=== PATIENT | male | born 1965 | race African-American/Black ===

== ENCOUNTER 2021-03-18 19:43 | Inpatient (IN) | payer MEDICARE, OTHER ==
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
[2021-03-18] MEDS ORDERED: SODIUM CHLORIDE 0.9% 500 ML 500 ML IV STA (20:23)
[2021-03-18] MEDS ORDERED: ACETAMINOPHEN TAB 500 MG TAB PO STA (20:23)
--- NOTE | 2021-03-18 20:36 | XR ---
EXAMINATION TYPE: XR chest 1V portable DATE OF EXAM: 03/18/2021 COMPARISON: NONE HISTORY: Short of breath TECHNIQUE: Single view FINDINGS: There is patchy pulmonary interstitial and airspace infiltrate. There is coalescent density in the left lung. Trachea is midline. There is no pneumothorax. There is no definite pleural effusio n. IMPRESSION: Extensive pulmonary edema suggestive of RDS.
[2021-03-18 21:01] LABS: Basophils # (A) 0.2 k/uL (0-0.2); Basophils % (A) 2 %; Eosinophils # (A) 0.1 k/uL (0-0.7); Eosinophils % (A) 1 %; HCT 37.1 % (39.0-53.0); HGB 11.8 gm/dL (13.0-17.5); Lymphocytes # (A) 1.5 k/uL (1.0-4.8); Lymphocytes % (A) 13 %; MCH 28.6 pg (25.0-35.0); MCHC 31.8 g/dL (31.0-37.0); MCV 89.8 fL (80.0-100.0); Mean Platelet Volume 8.1; Monocytes % (A) 9 %; Neutrophils # (A) 8.1 k/uL (1.3-7.7); Neutrophils % (A) 73 %; Platelet Count 241 k/uL (150-450); RBC 4.12 m/uL (4.30-5.90); RDW 14.9 % (11.5-15.5)
[2021-03-18 21:15] LABS: ALT 61 U/L (4-49); AST 42 U/L (17-59); African American GFR (CKD) >90 (>60 ml/min/1.73 sqM); Albumin 3.6 g/dL (3.5-5.0); Alkaline Phosphatase 106 U/L (38-126); Anion Gap 9 mmol/L; Blood Urea Nitrogen 13 mg/dL (9-20); Calcium 9.1 mg/dL (8.4-10.2); Carbon Dioxide 26 mmol/L (22-30); Chloride 106 mmol/L (98-107); Glucose 147 mg/dL (74-99); INR 1.1 (<1.2); Magnesium 2.1 mg/dL (1.6-2.3); Non-African American GFR(CKD) >90 (>60 ml/min/1.73 sqM); Partial Thromboplastin Time 26.5 sec (22.0-30.0); Potassium 4.6 mmol/L (3.5-5.1); Prothrombin Time 11.3 sec (9.0-12.0); Sodium 141 mmol/L (137-145); Total Bilirubin 0.3 mg/dL (0.2-1.3); Total Protein 6.8 g/dL (6.3-8.2)
[2021-03-18 21:21] LABS: D-Dimer 0.84 mg/L FEU (<0.60)
[2021-03-18 22:02] LABS: C Reactive Protein 32.8 mg/dL (<1.0)
[2021-03-18] MEDS ORDERED: NALOXONE 0.4 MG/ML 1 ML VIAL IV PRN (22:12)
[2021-03-18] MEDS ORDERED: ENOXAPARIN 150 MG/ML SYRINGE SQ STA (22:50)
[2021-03-18] MEDS ORDERED: DEXAMETHASONE SOD PHOSPHATE 10 MG/ML 1 ML VIAL IV STA (23:00)
--- NOTE | 2021-03-18 23:49 | CT ---
EXAMINATION TYPE: CT angio chest DATE OF EXAM: 03/18/2021 COMPARISON: None HISTORY: R/o PE CT DLP: 980 mGycm Automated exposure control for dose reduction was used. CONTRAST: Performed with IV Contrast, patient injected with 90 mL of Isovue 370. There are 3-D post processed images. Images obtained from the thoracic inlet to the diaphragm with IV contrast. There is extensive bilateral pulmonary interstitial and airspace infiltrates. Heart is top normal in size. There is no pericardial effusion. There is no pleural effusion. There are a few mediastinal and bronchial lymph nodes that measure mostly less than 1 cm. Thoracic aorta is intact. There is no aneurysm or dissection. There is normal contrast opacification of the pulmonary arteries. There are no filling defects. Thoracic spine is intact. There is no compression fracture. Sternum is intact. There is neural stimulator in the lower thoracic spine. IMPRESSION: No evidence of pulmonary embolism. Extensive bilateral pulmonary infiltrates suggestive of RDS.
[2021-03-19] MEDS ORDERED: guaiFENesin SYRUP 100MG/5ML 200 MG/10 ML CUP PO PRN (00:32)
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
[2021-03-19] MEDS ORDERED: SUCCINYLCHOLINE CHLORIDE 100 MG/5 ML SYR IV STA (00:59)
[2021-03-19] MEDS ORDERED: KETAMINE 10 MG/ML 20 ML VIAL IV ONE (00:59)
[2021-03-19 07:30] LABS: HCT 35.2 % (39.0-53.0); HGB 11.2 gm/dL (13.0-17.5); Hypochromasia Slight; MCH 28.5 pg (25.0-35.0); MCHC 31.7 g/dL (31.0-37.0); MCV 89.7 fL (80.0-100.0); Mean Platelet Volume 8.4; Platelet Count 236 k/uL (150-450); RBC 3.93 m/uL (4.30-5.90); RDW 14.8 % (11.5-15.5); WBC 10.3 k/uL (3.8-10.6)
[2021-03-19 07:41] LABS: ALT 57 U/L (4-49); AST 32 U/L (17-59); African American GFR (CKD) >90 (>60 ml/min/1.73 sqM); Albumin 3.3 g/dL (3.5-5.0); Alkaline Phosphatase 97 U/L (38-126); Anion Gap 8 mmol/L; Blood Urea Nitrogen 14 mg/dL (9-20); Calcium 8.7 mg/dL (8.4-10.2); Carbon Dioxide 25 mmol/L (22-30); Chloride 109 mmol/L (98-107); Glucose 173 mg/dL (74-99); LDH 767 U/L (313-618); Magnesium 2.3 mg/dL (1.6-2.3); Non-African American GFR(CKD) >90 (>60 ml/min/1.73 sqM); Potassium 4.5 mmol/L (3.5-5.1); Sodium 142 mmol/L (137-145); Total Bilirubin 0.5 mg/dL (0.2-1.3); Total Protein 6.6 g/dL (6.3-8.2)
[2021-03-19] MEDS: ASPIRIN 81 MG PO SCH (08:27)
[2021-03-19] MEDS: ENOXAPARIN 40 MG/0.4 ML SYRINGE SQ SCH (08:27)
[2021-03-19] MEDS: CHOLECALCIFEROL 25 MCG (1000 IU) TABLET PO SCH (08:27)
[2021-03-19 08:28] LABS: Glucose,Whole Blood 170 mg/dL (75-99)
[2021-03-19] MEDS: BENZONATATE 100 MG CAP PO SCH ×3 (08:28→21:38)
[2021-03-19] MEDS: ASCORBIC ACID 500 MG TAB PO SCH (08:28)
[2021-03-19] MEDS: FAMOTIDINE 20 MG TAB PO SCH ×2 (08:28→17:00)
[2021-03-19] MEDS: DEXAMETHASONE SOD PHOSPHATE 10 MG/ML 1 ML VIAL IV SCH (08:28)
[2021-03-19] MEDS: FUROSEMIDE 10 MG/ML 4 ML VIAL IV SCH ×2 (08:28→21:39)
[2021-03-19] MEDS ORDERED: TOCILIZUMAB 800 MG in SODIUM CHLORIDE 0.9% 60 ML IV ONE (08:30)
[2021-03-19 08:50] LABS: C Reactive Protein 32.7 mg/dL (<1.0)
[2021-03-19] MEDS: INSULIN ASPART (NovoLOG) 100 UNIT/ML VIAL SQ SCH ×4 (08:57→21:39)
[2021-03-19] MEDS ORDERED: METOPROLOL TARTRATE 50 MG TAB PO PRN (09:00)
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
[2021-03-19] MEDS: SYMBICORT 160-4.5 MCG INHALER INHALATION SCH ×2 (11:15→19:28)
--- NOTE | 2021-03-19 12:17 | ECHOF ---
Referral Reason:elevated trops MEASUREMENTS -------- HEIGHT: 182.9 cm WEIGHT: 136.1 kg BP: RVIDd: 4.0 cm (< 3.3) IVSd: 1.4 cm (0.6 - 1.1) LVIDd: 3.8 cm (3.9 - 5.3) LVPWd: 1.4 cm (0.6 - 1.1) IVSs: 1.5 cm LVIDs: 2.6 cm LVPWs: 1.4 cm Ao Diam: 3.5 cm (2.0 - 3.7) AV Cusp: 2.3 cm (1.5 - 2.6) LA Diam: 2.9 cm (2.7 - 3.8) MV EXCURSION: 21.200 mm (> 18.000) MV EF SLOPE: 270 mm/s (70 - 150) EPSS: 0.2 cm RAP: 5.00 mmHg RVSP: 45.16 mmHg FINDINGS -------- Sinus rhythm. Resting tachycardia (HR>100bpm). This was a technically adequate study. Morbid Obesity Pt is Covid positive. The left ventricular size is normal. There is mild concentric left ventricular hypertrophy. Overa ll left ventricular systolic function is normal with, an EF between 55 - 60 %. The right ventricle is severely enlarged. The left atrial size is normal. The right atrial size is normal. The aortic valve is trileaflet, and appears structurally normal. No aortic stenosis or regurgitation. The mitral valve is normal. Mild mitral regurgitation is present. Mild tricuspid regurgitation present. There is mild pulmonary hypertension. The right ventricular systolic pressure, as measured by Doppler, is 45.16mmHg. The pulmonic valve was not well visualized. The aortic root size is normal. There is no pericardial effusion. CONCLUSIONS -------- 1. Morbid Obesity 2. Pt is Covid positive. 3. There is mild concentric left ventricular hypertrophy. 4. Overall left ventricular systolic function is normal with, an EF between 55 - 60 %. 5. The right ventricle is severely enlarged. 6. The left atrial size is normal. 7. The aortic valve is trileaflet, and appears structurally normal. No aortic stenosis or regurgitati on. 8. Mild mitral regurgitation is present. 9. Mild tricuspid regurgitation present. 10. There is mild pulmonary hypertension. 11. There is no pericardial effusion. [employer] HAND ENGRAVER: Kiera Nesbitt RDCS
[2021-03-19 12:52] LABS: Glucose,Whole Blood 176 mg/dL (75-99)
[2021-03-19] MEDS: METOPROLOL TARTRATE 50 MG TAB PO SCH ×2 (13:03→21:39)
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
[2021-03-19 14:58] LABS: Hemoglobin A1C 6.3 % (4.0-6.0)
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
[2021-03-19 16:56] LABS: Glucose,Whole Blood 160 mg/dL (75-99)
[2021-03-19] MEDS: oxyCODONE-APAP 5-325MG 1 EACH TAB PO PRN (16:59)
[2021-03-19] MEDS: AMITRIPTYLINE HCL 25 MG TAB PO SCH (17:00)
[2021-03-19 20:11] LABS: Glucose,Whole Blood 164 mg/dL (75-99)
[2021-03-19] MEDS: ATORVASTATIN 10 MG TAB PO SCH (21:39)
[2021-03-19] MEDS: traZODone HCL 100 MG TAB PO SCH (21:39)
[2021-03-19] MEDS: MELATONIN 5 MG TABLET PO SCH (21:39)
[2021-03-20 02:04] LABS: Ferritin 861.3 ng/mL (22.0-322.0)
[2021-03-20 06:13] LABS: Glucose,Whole Blood 126 mg/dL (75-99)
[2021-03-20] MEDS: INSULIN ASPART (NovoLOG) 100 UNIT/ML VIAL SQ SCH ×4 (06:38→21:40)
[2021-03-20] MEDS: BENZONATATE 100 MG CAP PO SCH ×3 (07:01→21:39)
[2021-03-20] MEDS: SYMBICORT 160-4.5 MCG INHALER INHALATION SCH ×2 (07:44→20:21)
[2021-03-20] MEDS: DEXAMETHASONE SOD PHOSPHATE 10 MG/ML 1 ML VIAL IV SCH (09:28)
[2021-03-20] MEDS: FUROSEMIDE 10 MG/ML 4 ML VIAL IV SCH ×2 (09:28→21:40)
[2021-03-20] MEDS: AMITRIPTYLINE HCL 25 MG TAB PO SCH ×2 (10:27→16:54)
[2021-03-20] MEDS: ASCORBIC ACID 500 MG TAB PO SCH (10:27)
[2021-03-20] MEDS: ASPIRIN 81 MG PO SCH (10:27)
[2021-03-20] MEDS: CHOLECALCIFEROL 25 MCG (1000 IU) TABLET PO SCH (10:27)
[2021-03-20] MEDS: ENOXAPARIN 40 MG/0.4 ML SYRINGE SQ SCH (10:28)
[2021-03-20] MEDS: FAMOTIDINE 20 MG TAB PO SCH ×2 (10:28→16:55)
[2021-03-20] MEDS: SERTRALINE 100 MG TAB PO SCH (10:29)
[2021-03-20] MEDS: METOPROLOL TARTRATE 50 MG TAB PO SCH ×2 (10:29→21:39)
[2021-03-20 11:49] LABS: Glucose,Whole Blood 122 mg/dL (75-99)
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
[2021-03-20 16:52] LABS: Glucose,Whole Blood 130 mg/dL (75-99)
[2021-03-20 20:11] LABS: Glucose,Whole Blood 140 mg/dL (75-99)
[2021-03-20] MEDS: ATORVASTATIN 10 MG TAB PO SCH (21:39)
[2021-03-20] MEDS: traZODone HCL 100 MG TAB PO SCH (21:39)
[2021-03-20] MEDS: MELATONIN 5 MG TABLET PO SCH (21:39)
[2021-03-20] MEDS: oxyCODONE-APAP 5-325MG 1 EACH TAB PO PRN (21:40)
[2021-03-21 06:00] LABS: Glucose,Whole Blood 112 mg/dL (75-99)
[2021-03-21] MEDS: BENZONATATE 100 MG CAP PO SCH ×3 (06:28→20:33)
[2021-03-21] MEDS: INSULIN ASPART (NovoLOG) 100 UNIT/ML VIAL SQ SCH ×4 (06:32→20:35)
[2021-03-21] MEDS: SYMBICORT 160-4.5 MCG INHALER INHALATION SCH ×2 (07:58→20:37)
[2021-03-21] MEDS: DEXAMETHASONE SOD PHOSPHATE 10 MG/ML 1 ML VIAL IV SCH (08:56)
[2021-03-21] MEDS: FUROSEMIDE 10 MG/ML 4 ML VIAL IV SCH ×2 (08:56→20:34)
[2021-03-21] MEDS: ASPIRIN 81 MG PO SCH (09:11)
[2021-03-21] MEDS: AMITRIPTYLINE HCL 25 MG TAB PO SCH ×2 (09:11→17:04)
[2021-03-21] MEDS: SERTRALINE 100 MG TAB PO SCH (09:11)
[2021-03-21] MEDS: CHOLECALCIFEROL 25 MCG (1000 IU) TABLET PO SCH (09:11)
[2021-03-21] MEDS: ENOXAPARIN 40 MG/0.4 ML SYRINGE SQ SCH (09:12)
[2021-03-21] MEDS: METOPROLOL TARTRATE 50 MG TAB PO SCH ×2 (09:12→20:34)
[2021-03-21] MEDS: ASCORBIC ACID 500 MG TAB PO SCH (09:12)
[2021-03-21] MEDS: FAMOTIDINE 20 MG TAB PO SCH ×2 (09:12→17:04)
[2021-03-21 11:56] LABS: Glucose,Whole Blood 116 mg/dL (75-99)
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
--- NOTE | 2021-03-21 12:47 | XR ---
EXAMINATION TYPE: XR chest 1V portable DATE OF EXAM: 03/21/2021 COMPARISON: Chest x-ray 03/18/2021 HISTORY: Shortness of breath, Covid TECHNIQUE: Single frontal view of the chest is obtained. FINDINGS: There may be some slight interval improved aeration in the right upper lobe, left upper lo be. Prior exam. Exam is expiratory and rotated however. Postop changes are noted cervical spine. Thor acic cord stimulator in leads are again seen. Cardiomediastinal silhouette is stable. No evident pneu mothorax or pleural effusion. Possible spinal curvature. There is thoracic spondylosis. IMPRESSION: Suspect some improvement in aeration although there are differences in technique. Expira tory rotated exam.
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
[2021-03-21 17:08] LABS: Glucose,Whole Blood 120 mg/dL (75-99)
[2021-03-21 20:23] LABS: Glucose,Whole Blood 121 mg/dL (75-99)
[2021-03-21] MEDS: oxyCODONE-APAP 5-325MG 1 EACH TAB PO PRN (20:34)
[2021-03-21] MEDS: traZODone HCL 100 MG TAB PO SCH (20:34)
[2021-03-21] MEDS: ATORVASTATIN 10 MG TAB PO SCH (20:34)
[2021-03-21] MEDS: MELATONIN 5 MG TABLET PO SCH (20:35)
[2021-03-22 05:14] VITALS: RESP 18
[2021-03-22 06:20] LABS: Glucose,Whole Blood 83 mg/dL (75-99)
[2021-03-22] MEDS: INSULIN ASPART (NovoLOG) 100 UNIT/ML VIAL SQ SCH ×2 (06:22→12:16)
[2021-03-22] MEDS: BENZONATATE 100 MG CAP PO SCH (06:36)
[2021-03-22] MEDS: SYMBICORT 160-4.5 MCG INHALER INHALATION SCH (09:02)
[2021-03-22] MEDS: oxyCODONE-APAP 5-325MG 1 EACH TAB PO PRN (09:09)
[2021-03-22] MEDS: FUROSEMIDE 10 MG/ML 4 ML VIAL IV SCH (09:10)
[2021-03-22] MEDS: ASPIRIN 81 MG PO SCH (09:10)
[2021-03-22] MEDS: AMITRIPTYLINE HCL 25 MG TAB PO SCH (09:12)
[2021-03-22] MEDS: ENOXAPARIN 40 MG/0.4 ML SYRINGE SQ SCH (09:12)
[2021-03-22] MEDS: CHOLECALCIFEROL 25 MCG (1000 IU) TABLET PO SCH (09:13)
[2021-03-22] MEDS: SERTRALINE 100 MG TAB PO SCH (09:13)
[2021-03-22] MEDS: DEXAMETHASONE SOD PHOSPHATE 10 MG/ML 1 ML VIAL IV SCH (09:13)
[2021-03-22] MEDS: METOPROLOL TARTRATE 50 MG TAB PO SCH (09:13)
[2021-03-22] MEDS: ASCORBIC ACID 500 MG TAB PO SCH (09:14)
[2021-03-22] MEDS: FAMOTIDINE 20 MG TAB PO SCH (09:14)
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
[2021-03-22 12:15] LABS: Glucose,Whole Blood 107 mg/dL (75-99)
[2021-03-22 12:16] VITALS: BP 109/60; PULSE 95; TEMP 98.3
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
== END 2021-03-22 13:03 | DRG 177 ==
LOC: EC 19:43 → EEVIPCON 19:43 → 3SCARD 22:12
PROVIDERS: ADMIT Internal Medicine Geriatric Medicine; ATTEND Internal Medicine Geriatric Medicine
PROC: XW043H5 Introduction of Tocilizumab into Central Vein, Percutaneous Approach, New Technology Group 5 (ICD-10-PCS; principal; 2021-03-18)
PROC: 5A0945A Assistance with Respiratory Ventilation, 24-96 Consecutive Hours, High Flow/Velocity Cannula (ICD-10-PCS; 2021-03-19)
DX: U07.1 COVID-19 (principal); J12.82 Pneumonia due to coronavirus disease 2019; J80 Acute respiratory distress syndrome; I50.31 Acute diastolic (congestive) heart failure; E87.2 Acidosis; F33.9 Major depressive disorder, recurrent, unspecified; G81.91 Hemiplegia, unspecified affecting right dominant side; E11.9 Type 2 diabetes mellitus without complications; E66.9 Obesity, unspecified; E78.5 Hyperlipidemia, unspecified; F41.9 Anxiety disorder, unspecified; F79 Unspecified intellectual disabilities; I11.0 Hypertensive heart disease with heart failure; I27.20 Pulmonary hypertension, unspecified; I45.10 Unspecified right bundle-branch block; K21.9 Gastro-esophageal reflux disease without esophagitis; W34.00XS Accidental discharge from unspecified firearms or gun, sequela; Z87.820 Personal history of traumatic brain injury; Z79.51 Long term (current) use of inhaled steroids; Z79.82 Long term (current) use of aspirin; Z79.84 Long term (current) use of oral hypoglycemic drugs; Z79.899 Other long term (current) drug therapy; Z82.49 Family history of ischemic heart disease and other diseases of the circulatory system; Z87.891 Personal history of nicotine dependence; R79.89 Other specified abnormal findings of blood chemistry; G89.29 Other chronic pain; M54.2 Cervicalgia; M54.5 Low back pain; I08.1 Rheumatic disorders of both mitral and tricuspid valves; Z87.01 Personal history of pneumonia (recurrent); E07.9 Disorder of thyroid, unspecified; K76.9 Liver disease, unspecified; R00.0 Tachycardia, unspecified; Z88.0 Allergy status to penicillin
CPT/HCPCS: 36415; 71045; 71275; 80053; 82728; 83036; 83605; 83615; 83735; 83880; 84484; 85025; 85027; 85379; 85610; 85730; 86140; 87636; 93005; 93306; 94640; 94660; 94760; 96360; 99291

== ENCOUNTER 2021-11-12 08:54 | Inpatient (IN) | payer MEDICARE, OTHER ==
[2021-11-12 09:07] LABS: Glucose,Whole Blood 100 mg/dL (75-99)
[2021-11-12 09:24] LABS: Basophils % (A) 0 %; Eosinophils # (A) 0.3 k/uL (0-0.7); Eosinophils % (A) 4 %; HCT 36.2 % (39.0-53.0); HGB 11.5 gm/dL (13.0-17.5); Hypochromasia Slight; Lymphocytes % (A) 29 %; MCH 28.7 pg (25.0-35.0); MCHC 31.8 g/dL (31.0-37.0); MCV 90.1 fL (80.0-100.0); Mean Platelet Volume 8.7; Monocytes # (A) 0.7 k/uL (0-1.0); Monocytes % (A) 10 %; Neutrophils # (A) 3.7 k/uL (1.3-7.7); Neutrophils % (A) 54 %; Platelet Count 204 k/uL (150-450); RBC 4.02 m/uL (4.30-5.90); RDW 14.7 % (11.5-15.5); WBC 6.8 k/uL (3.8-10.6)
--- NOTE | 2021-11-12 09:37 | CT ---
EXAMINATION TYPE: CT brain wo con for TPA DATE OF EXAM: 11/12/2021 COMPARISON: None HISTORY: Lt sided arm weakness CT DLP: 1099.4 mGycm Automated exposure control for dose reduction was used. Helical imaging through the brain. FINDINGS: Bilateral frontal lobe encephalomalacia is present, there is extra-axial phenomenon of the frontal ho rns of the lateral ventricles, overlying craniotomy defects are present, multiple metallic densities are scattered along the calvarial segment, within the overlying soft tissues, along the dural surface s as well as along a density over the frontal lobe which may be due to some bone fragment or possibly dystrophic calcification. There is no evident hemorrhage or hydrocephalus. Within the subcutaneous s calp soft tissues anteriorly there is a small focus of air present which may be due to local trauma, axial image #36. Cerebral vascular calcifications are present. IMPRESSION: POSTTRAUMATIC CHANGES ARE THOUGHT LIKELY TO BE CHRONIC, COMPARISON WITH PRIOR HEAD CT MAY BE OF BENEF IT, ADDENDED REPORT CAN BE ISSUED
[2021-11-12 09:40] LABS: ALT 31 U/L (4-49); AST 23 U/L (17-59); African American GFR (CKD) >90 (>60 ml/min/1.73 sqM); Alkaline Phosphatase 85 U/L (38-126); Anion Gap 10 mmol/L; Blood Urea Nitrogen 11 mg/dL (9-20); Calcium 9.5 mg/dL (8.4-10.2); Carbon Dioxide 27 mmol/L (22-30); Chloride 102 mmol/L (98-107); Glucose 90 mg/dL (74-99); Non-African American GFR(CKD) >90 (>60 ml/min/1.73 sqM); Potassium 4.4 mmol/L (3.5-5.1); Sodium 139 mmol/L (137-145); Total Bilirubin 0.3 mg/dL (0.2-1.3); Total Protein 7.5 g/dL (6.3-8.2)
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
--- NOTE | 2021-11-12 10:13 | XR ---
EXAMINATION TYPE: XR chest 2V DATE OF EXAM: 11/12/2021 COMPARISON: 03/21/2021 HISTORY: 55-year-old male confusion, altered mental status TECHNIQUE: AP and lateral views FINDINGS: Very low lung volumes with crowded vascular markings. Strandy atelectasis in the lower lungs. Spinal stimulator array centered along the mid to lower thoracic spinal canal. No ramy consolidation or ple ural effusion. Partially visualized ACDF hardware. IMPRESSION: Prominent hypoventilatory changes with crowded vascular markings and strandy basilar atelectasis.
--- NOTE | 2021-11-12 10:27 | CT ---
EXAMINATION TYPE: CT angio head neck DATE OF EXAM: 11/12/2021 HISTORY: lt arm weakness, history of closed head injury COMPARISON: 11/12/2021 CT DLP: 880.8 mGycm. Automated Exposure Control for Dose Reduction was Utilized. TECHNIQUE: CTA scan of the neck is performed with IV Contrast, patient injected with 65 mL of Isovue 370, axial images are obtained, coronal and sagittal reformatted images are reviewed. 3D reconstruct ed images are created on an independent workstation and reviewed. FINDINGS: Extensive encephalomalacia intracranially with postsurgical change is seen. There is a lens edge grinder machine kourtney appearing calcification left cerebral hemisphere. Aortic arch appears to be patent. Origins of the great vessels have standard anatomy and appear to be patent. Carotid bifurcations are patent bilaterally. No significant stenosis. No sizable aneurysm or vascular malformation. Visualized vertebral basilar system is patent. Posterio r cerebral arteries enhance normally. Visualized carotid arteries appear to enhance normally. The proximal M1 segments of bilateral MCAs enhance. There is asymmetric reduced enhancement of the bi furcation vessels of the left MCA. Anterior cerebral arteries are diminutive in size. Patent. Cannot exclude a small 1 to 2 mm anterior communicating artery aneurysm. IMPRESSION: 1. There is reduced enhancement of the bifurcation vessels of the left MCA relative to the right side . Acute thrombotic event cannot be excluded consider correlation clinically and if warranted with dif fusion weighted MRI, MRA. NASCET criteria was used in interpretation of this exam?
[2021-11-12] MEDS ORDERED: ASPIRIN 81 MG PO STA (11:03)
[2021-11-12 11:11] LABS: INR 0.9 (<1.2); Partial Thromboplastin Time 24.1 sec (22.0-30.0); Prothrombin Time 9.9 sec (9.0-12.0)
[2021-11-12] MEDS ORDERED: ASPIRIN 325 MG TAB PO STA (11:12)
[2021-11-12 11:24] LABS: Appearance,Urine Clear (Clear); Bilirubin,Urine Negative (Negative); Blood,Urine Negative (Negative); Color,Urine Yellow; Glucose,Urine (UA) Negative (Negative); Ketones,Urine Negative (Negative); Leukocyte Esterase,Urine Negative (Negative); Nitrite,Urine Negative (Negative); Protein,Urine Trace (Negative); Urobilinogen,Urine <2.0 mg/dL (<2.0)
[2021-11-12] MEDS ORDERED: SODIUM CHLORIDE 0.9% 500 ML 500 ML IV STA (11:39)
[2021-11-12 12:04] LABS: Amphetamine Screen,Urine Not Detected (NotDetected); Barbiturate Screen,Urine Not Detected (NotDetected); Benzodiazepines Screen,Urine Not Detected (NotDetected); Cocaine Screen,Urine Not Detected (NotDetected); Methadone Screen, Urine Not Detected (NotDetected); Opiate Screen,Urine Detected (NotDetected); Oxycodone Screen, Urine Detected (NotDetected); Phencyclidine Screen,Urine Not Detected (NotDetected); Tricyclic Antidepressant,Urine Detected (NotDetected); Urn Cannabinoid Scrn Not Detected (NotDetected)
[2021-11-12 12:08] LABS: Specific Gravity,Urine >1.050 (1.001-1.035)
[2021-11-12] MEDS ORDERED: ACETAMINOPHEN TAB 325 MG TAB PO PRN (12:31)
[2021-11-12] MEDS ORDERED: guaiFENesin SYRUP 100MG/5ML 200 MG/10 ML CUP PO PRN (12:31)
[2021-11-12] MEDS: oxyCODONE-APAP 5-325MG 1 EACH TAB PO SCH ×3 (13:44→20:13)
[2021-11-12 16:00] LABS: Glucose,Whole Blood 109 mg/dL (75-99)
[2021-11-12] MEDS ORDERED: TICAGRELOR 90 MG TAB PO STA (16:14)
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
[2021-11-12] MEDS ORDERED: metFORMIN 500 MG TAB PO SCH (17:00)
[2021-11-12] MEDS ORDERED: AMITRIPTYLINE HCL 25 MG TAB PO SCH (17:00)
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
--- NOTE | 2021-11-12 18:00 | ECHOF ---
Referral Reason:Thrombus MEASUREMENTS -------- HEIGHT: 185.4 cm WEIGHT: 135.6 kg BP: 131/96 RVIDd: 3.1 cm (< 3.3) IVSd: 1.4 cm (0.6 - 1.1) LVIDd: 3.8 cm (3.9 - 5.3) LVPWd: 1.6 cm (0.6 - 1.1) IVSs: 2.0 cm LVIDs: 2.8 cm LVPWs: 1.7 cm LAESV Index (A-L): 21.02 ml/m Ao Diam: 4.0 cm (2.0 - 3.7) AV Cusp: 2.4 cm (1.5 - 2.6) LA Diam: 4.2 cm (2.7 - 3.8) MV EXCURSION: 19.027 mm (> 18.000) MV EF SLOPE: 62 mm/s (70 - 150) EPSS: 0.3 cm MV E Adam: 0.79 m/s MV DecT: 364 ms MV A Adam: 1.08 m/s MV E/A Ratio: 0.73 RAP: 5.00 mmHg RVSP: 21.95 mmHg FINDINGS -------- Sinus rhythm. This was a technically difficult study with suboptimal apical views. All issa not well visulized The left ventricular size is normal. There is moderate concentric left ventricular hypertrophy. O verall left ventricular systolic function is normal with, an EF between 55 - 60 %. The right ventricle is normal in size. Normal LA size by volume 22+/-6 ml/m2. The right atrium was not well visualized. 4.0mg of Lumason was utilized for enhancement of images Interatrial and interventricular septum intact. There is no evidence of aortic regurgitation. There is no evidence of aortic stenosis. There is trace to mild mitral regurgitation. Mild tricuspid regurgitation present. There is no evidence of pulmonary hypertension. The right v entricular systolic pressure, as measured by Doppler, is 21.95mmHg. There is no pulmonic regurgitation present. The aortic root size is normal. IVC Not well visulized. There is no pericardial effusion. CONCLUSIONS -------- 1. The left ventricular size is normal. 2. There is moderate concentric left ventricular hypertrophy. 3. Overall left ventricular systolic function is normal with, an EF between 55 - 60 %. 4. There is trace to mild mitral regurgitation. 5. Mild tricuspid regurgitation present. SILO PAINTER: Camille Pritchett RDCS
[2021-11-12] MEDS: SYMBICORT 160-4.5 MCG INHALER INHALATION SCH (19:43)
[2021-11-12 19:59] LABS: Glucose,Whole Blood 131 mg/dL (75-99)
[2021-11-12] MEDS: HEPARIN SODIUM,PORCINE/PF 5,000 UNIT/0.5 ML SYRINGE SQ SCH (20:12)
[2021-11-12] MEDS: FAMOTIDINE 20 MG TAB PO SCH (20:13)
[2021-11-12] MEDS: MELATONIN 5 MG TABLET PO SCH (20:13)
[2021-11-12] MEDS: METOPROLOL TARTRATE 50 MG TAB PO SCH (20:13)
[2021-11-12] MEDS: AMITRIPTYLINE HCL 50 MG TAB PO SCH (20:13)
[2021-11-12] MEDS: ATORVASTATIN 20 MG TAB PO SCH (20:13)
[2021-11-12] MEDS: SENNOSIDES-DOCUSATE SODIUM 1 EACH TAB PO SCH (20:15)
[2021-11-12] MEDS ORDERED: TICAGRELOR 90 MG TAB PO SCH (21:00)
[2021-11-12] MEDS ORDERED: ATORVASTATIN 10 MG TAB PO SCH (21:00)
[2021-11-13] MEDS: oxyCODONE-APAP 5-325MG 1 EACH TAB PO SCH ×6 (00:21→21:28)
[2021-11-13 06:19] LABS: Glucose,Whole Blood 92 mg/dL (75-99)
[2021-11-13 08:31] LABS: ALT 29 U/L (4-49); AST 22 U/L (17-59); African American GFR (CKD) >90 (>60 ml/min/1.73 sqM); Alkaline Phosphatase 92 U/L (38-126); Anion Gap 10 mmol/L; Blood Urea Nitrogen 11 mg/dL (9-20); Calcium 9.5 mg/dL (8.4-10.2); Carbon Dioxide 26 mmol/L (22-30); Chloride 104 mmol/L (98-107); Glucose 97 mg/dL (74-99); Non-African American GFR(CKD) >90 (>60 ml/min/1.73 sqM); Potassium 4.1 mmol/L (3.5-5.1); Sodium 140 mmol/L (137-145); Total Bilirubin 0.4 mg/dL (0.2-1.3); Total Protein 7.5 g/dL (6.3-8.2)
[2021-11-13] MEDS: ASPIRIN 81 MG PO SCH (09:36)
[2021-11-13] MEDS: ASCORBIC ACID 500 MG TAB PO SCH (09:36)
[2021-11-13] MEDS: CHOLECALCIFEROL 125 MCG (5000 IU) TABLET PO SCH (09:36)
[2021-11-13] MEDS: CYANOCOBALAMIN 500 MCG TAB PO SCH (09:36)
[2021-11-13] MEDS: CLOPIDOGREL 75 MG TAB PO SCH (09:36)
[2021-11-13] MEDS: SERTRALINE 100 MG TAB PO SCH (09:39)
[2021-11-13] MEDS: METOPROLOL TARTRATE 50 MG TAB PO SCH ×2 (09:39→21:28)
[2021-11-13] MEDS: SENNOSIDES-DOCUSATE SODIUM 1 EACH TAB PO SCH ×2 (09:40→21:29)
[2021-11-13] MEDS: HEPARIN SODIUM,PORCINE/PF 5,000 UNIT/0.5 ML SYRINGE SQ SCH ×2 (09:42→21:29)
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
[2021-11-13 11:37] LABS: Glucose,Whole Blood 108 mg/dL (75-99)
[2021-11-13] MEDS: SYMBICORT 160-4.5 MCG INHALER INHALATION SCH ×2 (13:08→21:39)
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
[2021-11-13 15:14] LABS: Chol/HDL Ratio 3.05 Ratio; LDL Cholesterol,Calculated 72.3 mg/dL (0.0-131.0)
[2021-11-13 16:45] LABS: Glucose,Whole Blood 94 mg/dL (75-99)
[2021-11-13] MEDS: metFORMIN 500 MG TAB PO SCH (17:37)
--- NOTE | 2021-11-13 18:22 | EEG ---
ELECTROENCEPHALOGRAM REPORT DATE OF SERVICE: 11/13/2021 CLINICAL HISTORY: This is a 55-year-old gentleman with history of traumatic brain injury with bilateral frontal and left parietal encephalomalacia who presented because of acute left-sided weakness. The video EEG is obtained to evaluate for seizure epileptiform activity. RELEVANT MEDICATIONS: The patient is not on any antiepileptic drugs. EEG TYPE: A routine 21 channel EEG is performed with video using the 10/20 electrode placement system. DESCRIPTION: Awake state is obtained. During awake state the background consist of low to moderate voltage of 7-8 hertz activity. There is no physiological stage II sleep architecture. There is significant diffuse myogenic artifact. The slowing is hard to assess because of artifact. There is moderate significant diffuse myogenic artifact throughout the study. Regarding the interictal and ictal: None appreciated. ACTIVATION PROCEDURES: Photic stimulation and hyperventilation is not performed. CLINICAL INTERPRETATION: This is an abnormal routine EEG. The background slowing is suggestive of mild encephalopathy. I could not comment on patient slowing because of artifact. There is no epileptiform discharges or seizure on the EEG. Clinical correlation is recommended. YAZ / MARILYNN: [id number] / MTDD
[2021-11-13 21:06] LABS: Glucose,Whole Blood 130 mg/dL (75-99)
[2021-11-13] MEDS: AMITRIPTYLINE HCL 50 MG TAB PO SCH (21:28)
[2021-11-13] MEDS: ATORVASTATIN 20 MG TAB PO SCH (21:28)
[2021-11-13] MEDS: FAMOTIDINE 20 MG TAB PO SCH (21:28)
[2021-11-13] MEDS: MELATONIN 5 MG TABLET PO SCH (21:29)
[2021-11-14] MEDS: oxyCODONE-APAP 5-325MG 1 EACH TAB PO SCH ×5 (00:16→17:12)
[2021-11-14 06:16] LABS: Glucose,Whole Blood 107 mg/dL (75-99)
[2021-11-14] MEDS: ASPIRIN 81 MG PO SCH (08:50)
[2021-11-14] MEDS: METOPROLOL TARTRATE 50 MG TAB PO SCH (08:50)
[2021-11-14] MEDS: metFORMIN 500 MG TAB PO SCH ×2 (08:50→17:12)
[2021-11-14] MEDS: CHOLECALCIFEROL 125 MCG (5000 IU) TABLET PO SCH (08:50)
[2021-11-14] MEDS: HEPARIN SODIUM,PORCINE/PF 5,000 UNIT/0.5 ML SYRINGE SQ SCH (08:51)
[2021-11-14] MEDS: CYANOCOBALAMIN 500 MCG TAB PO SCH (08:51)
[2021-11-14] MEDS: CLOPIDOGREL 75 MG TAB PO SCH (08:51)
[2021-11-14] MEDS: ASCORBIC ACID 500 MG TAB PO SCH (08:51)
[2021-11-14] MEDS: SENNOSIDES-DOCUSATE SODIUM 1 EACH TAB PO SCH (08:52)
[2021-11-14] MEDS: SERTRALINE 100 MG TAB PO SCH (08:52)
[2021-11-14] MEDS: SYMBICORT 160-4.5 MCG INHALER INHALATION SCH (09:09)
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
[2021-11-14 11:07] VITALS: RESP 18
[2021-11-14 11:54] LABS: Glucose,Whole Blood 100 mg/dL (75-99)
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
[2021-11-14 16:07] VITALS: BP 134/70; PULSE 82; TEMP 98
[2021-11-14 16:48] LABS: Glucose,Whole Blood 175 mg/dL (75-99)
== END 2021-11-14 18:34 | DRG 65 ==
LOC: EC 08:54 → 3SCARD 11:12
PROVIDERS: ADMIT Family Medicine; ATTEND Family Medicine
DX: I63.312 Cerebral infarction due to thrombosis of left middle cerebral artery (principal); G81.94 Hemiplegia, unspecified affecting left nondominant side; F33.9 Major depressive disorder, recurrent, unspecified; Q21.0 Ventricular septal defect; G81.91 Hemiplegia, unspecified affecting right dominant side; I63.9 Cerebral infarction, unspecified; D64.9 Anemia, unspecified; Z20.822 Contact with and (suspected) exposure to COVID-19; E11.9 Type 2 diabetes mellitus without complications; E78.5 Hyperlipidemia, unspecified; F41.9 Anxiety disorder, unspecified; G89.29 Other chronic pain; G93.89 Other specified disorders of brain; I50.9 Heart failure, unspecified; I11.0 Hypertensive heart disease with heart failure; R47.01 Aphasia; Z86.16 Personal history of COVID-19; R29.711 NIHSS score 11; R56.9 Unspecified convulsions; Z79.51 Long term (current) use of inhaled steroids; Z79.82 Long term (current) use of aspirin; Z79.84 Long term (current) use of oral hypoglycemic drugs; Z79.899 Other long term (current) drug therapy; Z82.49 Family history of ischemic heart disease and other diseases of the circulatory system; Z87.820 Personal history of traumatic brain injury; Z87.891 Personal history of nicotine dependence; S06.890S Other specified intracranial injury without loss of consciousness, sequela; X95.9XXS Assault by unspecified firearm discharge, sequela
CPT/HCPCS: 36415; 70450; 70496; 70498; 71046; 80053; 80061; 80306; 81003; 83036; 83605; 84443; 84484; 85025; 85610; 85730; 87040; 87635; 93005; 93306; 94640; 95816; 99291

== ENCOUNTER → 2022-04-15 | Outpatient (CLI) | payer MEDICARE ==
--- NOTE | 2022-04-15 15:17 | USB ---
Reason for Exam: Clinical finding. Indicated Problems: Palpable abnormality of both sides. Film Views: Bilateral CC views were taken. Bilateral MLO views were taken. Tissue Density: There are scattered fibroglandular densities. Findings: Analyzed By CAD. Mammogram There is breast tissue under the bilateral nipples. Findings are compatible with gynecomastia. A palpable abnormality is within the lower inner aspect left breast. No underlying mammographic abnormalities located at this level.. Technique: Method: Targeted. Findings: The retroareolar of both breasts was scanned. palp Rt 10 - no findings, palp Lt 12 - no findings, appearance of bilateral gynocomatiaGynecomastia is the retroareolar region. A suspicious mass is not identified. Short-term follow-up can be performed. Overall Assessment: Probably benign, BI-RAD 3 Assessment: MG 3D diag mammo w/cad WILLIAM - Bilateral: Probably benign, BI-RAD 3. US breast limited BILAT - Bilateral: Probably benign, BI-RAD 3. Management: Diagnostic Mammogram of both breasts in 6 months. Diagnostic Breast Ultrasound of the left breast in 6 months. A clinical breast exam by your physician is recommended on an annual basis and results should be correlated with mammographic findings. Results were given to the patient verbally at the time of exam. Clinical management is recommended. Negative ultrasound and negative mammogram should not preclude biopsy of suspicious palpable abnormalities. Electronically signed and approved by: Blade Alcantara D.O. Radiologis
== END | disposition home or self-care (01) ==
LOC: RADMAMWWP 09:01
PROVIDERS: ATTEND Family Medicine
DX: N64.4 Mastodynia (principal)
CPT/HCPCS: 77066; 76642; G0279; 77062

== ENCOUNTER 2022-11-04 19:24 | Emergency (ER) | payer MEDICARE ==
[2022-11-04 19:41] VITALS: RESP 18; TEMP 98.2
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
[2022-11-04 20:08] LABS: Appearance,Urine Turbid (Clear); Bilirubin,Urine Negative (Negative); Blood,Urine Large (Negative); Color,Urine Dark Brown; Glucose,Urine (UA) Negative (Negative); Ketones,Urine Negative (Negative); Leukocyte Esterase,Urine Large (Negative); Mucus,Urine Many /hpf; Nitrite,Urine Negative (Negative); Protein,Urine 2+ (Negative); RBC,Urine >182 /hpf (0-5); Urobilinogen,Urine <2.0 mg/dL (<2.0); WBC,Urine 91 /hpf (0-5)
[2022-11-04 20:22] LABS: Specific Gravity,Urine 1.028 (1.001-1.035)
[2022-11-04 21:03] LABS: Albumin 3.9 g/dL (3.5-5.0); Calcium 8.8 mg/dL (8.4-10.2); Potassium 4.7 mmol/L (3.5-5.1); Total Bilirubin 0.2 mg/dL (0.2-1.3); Total Protein 7.1 g/dL (6.3-8.2)
[2022-11-04 21:23] LABS: HCT 35.7 % (39.0-53.0); HGB 11.3 gm/dL (13.0-17.5); Hypochromasia Slight; MCH 27.5 pg (25.0-35.0); MCHC 31.6 g/dL (31.0-37.0); Mean Platelet Volume 8.5; Platelet Count 240 k/uL (150-450); RDW 14.1 % (11.5-15.5); WBC 5.2 k/uL (3.8-10.6)
[2022-11-04 21:41] LABS: Eosinophils # (M) 0.21 k/uL (0-0.7); Lymphocytes # (M) 1.61 k/uL (1.0-4.8); Monocytes # (M) 0.99 k/uL (0-1.0); Neutrophils # (M) 2.39 k/uL (1.3-7.7); Neutrophils % (M) 46 %; Nucleated Red Blood Cells 0 /100 WBC (0-0); Total Cells Counted 100
[2022-11-04 23:26] VITALS: BP 135/80; PULSE 91
== END 2022-11-04 23:26 | disposition home or self-care (01) ==
LOC: EC 19:24
DX: R31.9 Hematuria, unspecified (principal); I11.0 Hypertensive heart disease with heart failure; I50.9 Heart failure, unspecified; E78.5 Hyperlipidemia, unspecified; K21.9 Gastro-esophageal reflux disease without esophagitis; E11.9 Type 2 diabetes mellitus without complications; E07.9 Disorder of thyroid, unspecified; F41.9 Anxiety disorder, unspecified; F32.A Depression, unspecified; Z79.82 Long term (current) use of aspirin; Z79.899 Other long term (current) drug therapy; Z79.4 Long term (current) use of insulin; Z87.891 Personal history of nicotine dependence; Z88.0 Allergy status to penicillin
CPT/HCPCS: 36415; 80053; 81001; 83605; 85025; 99284; 99285

== ENCOUNTER → 2023-02-15 | Outpatient (CLI) | payer MEDICARE ==
[2023-02-15 18:18] LABS: Basophils # (A) 0.05 X 10*3/uL (0.00-0.10); Basophils % (A) 0.6 %; Eosinophils # (A) 0.69 X 10*3/uL (0.04-0.35); HCT 37.2 % (39.6-50.0); HGB 11.2 g/dL (13.0-17.0); Immature Grans, Automated 0.5 %; Lymphocytes # (A) 2.12 X 10*3/uL (0.90-5.00); Lymphocytes % (A) 24.6 %; MCHC 30.1 g/dL (32.0-37.0); MCV 86.3 fL (80.0-97.0); Mean Platelet Volume 10.2 fL (9.5-12.2); Monocytes % (A) 8.1 %; NRBC Per 100 WBC 0 /100 WBCS (0.0-0.0); Neutrophils # (A) 5.01 X 10*3/uL (1.80-7.70); Neutrophils % (A) 58.2 %; Platelet Count 274 X 10*3/uL (140-440); RBC 4.31 X 10*6/uL (4.40-5.60); RDW 15.9 % (11.5-14.5); WBC 8.61 X 10*3/uL (4.50-10.00)
[2023-02-15 19:56] LABS: ALT 35 U/L (10-49); AST 42 U/L (14-35); African American GFR (CKD) 109.5 (60.0-200.0); Albumin 4.3 g/dL (3.8-4.9); Alkaline Phosphatase 101 U/L (41-126); BUN/Creat Ratio 19.11 Ratio (12.00-20.00); Blood Urea Nitrogen 17.2 mg/dL (9.0-27.0); Calcium 9.5 mg/dL (8.7-10.3); Carbon Dioxide 19.2 mmol/L (20.0-27.5); Chloride 106 mmol/L (96-109); Globulin 3.3 g/dL (1.6-3.3); Non-African American GFR(CKD) 94.5 (60.0-200.0); Sodium 140 mmol/L (135-145); Total Bilirubin <0.15 mg/dL (0.30-1.20); Total Protein 7.6 g/dL (6.2-8.2)
== END | disposition home or self-care (01) ==
LOC: LABPAT 08:33
PROVIDERS: ATTEND Urology
DX: Z01.812 Encounter for preprocedural laboratory examination (principal); N20.0 Calculus of kidney; R31.29 Other microscopic hematuria
CPT/HCPCS: 80053; 85025

== ENCOUNTER 2023-02-24 06:49 | Day surgery (SDC) | payer MEDICARE, OTHER ==
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
[~2023-02-24 06:49] MED LIST: GENTAMICIN 170 MG in SODIUM CHLORIDE 0.9% 100 ML IVPB PRN; Pre Op ABX Message 1 EACH MISC MISCELLANE ONE
[2023-02-24] MEDS ORDERED: DEXAMETHASONE SOD PHOSPHATE 4 MG/ML 1 ML VIAL IV ONE (07:25)
[2023-02-24] MEDS ORDERED: HYDROmorphone 0.5 MG/0.5 ML SYRINGE IVP PRN (07:25)
[2023-02-24] MEDS ORDERED: ONDANSETRON 4 MG/2 ML VIAL IVP ONE (07:25)
[2023-02-24] MEDS ORDERED: LIDOCAINE 1% (10MG/ML) FOR IV START INTRADERMA PRN (07:25)
--- NOTE | 2023-02-24 07:25 | XR ---
EXAMINATION TYPE: XR KUB DATE OF EXAM: 02/24/2023 7:16 AM CLINICAL HISTORY: Right-sided kidney stone. TECHNIQUE: 3 supine KUB images of the abdomen are obtained. COMPARISON: CT abdomen and pelvis December 26, 2022. FINDINGS: Evaluation is suboptimal due to large body habitus. Right double-J ureter stent is redemons trated. No definitive nephrolithiasis. Overall nonobstructive bowel gas pattern. Surgical change to the lower lumbar spine is present. There is lower thoracic spinal stimulator device. Lung bases are clear. IMPRESSION: As above.
[2023-02-24 08:19] LABS: Glucose,Whole Blood 105 mg/dL (70-110)
[2023-02-24] MEDS: LACTATED RINGERS 1,000 ML IV SCH (08:24)
[2023-02-24] MEDS ORDERED: GLYCOPYRROLATE 0.2 MG/ML 2 ML VIAL ONE (09:20)
[2023-02-24] MEDS ORDERED: fentaNYL (PF) 50 MCG/ML 2 ML AMP ONE (09:20)
[2023-02-24] MEDS ORDERED: NEOSTIGMINE 1 MG/ML 10 ML VIAL ONE (09:20)
[2023-02-24] MEDS ORDERED: ROCURONIUM 10 MG/ML (5 ML VIAL) IV ONE (09:20)
[2023-02-24] MEDS ORDERED: PROPOFOL 10 MG/ML 20 ML VIAL IV ONE (09:20)
[2023-02-24] MEDS ORDERED: LIDOCAINE 2% INJ 20 MG/ML (2 ML VIAL) ONE (09:20)
[2023-02-24] MEDS ORDERED: PHENYLEPHRINE-0.9% NACL SYG 1,000 MCG/10 ML SYRINGE ONE (09:20)
[2023-02-24] MEDS ORDERED: IOPAMIDOL-370 50ML BTL IRRIGATION ONE (10:06)
[2023-02-24] MEDS: VANCOMYCIN 2,000 MG in SODIUM CHLORIDE 0.9% 500 ML 500 ML IVPB STA ×2 (10:11→13:01)
[2023-02-24] MEDS ORDERED: ACETAMINOPHEN TAB 325 MG TAB PO PRN ×2 (10:52→10:54)
[2023-02-24] MEDS ORDERED: NON FORMULARY DRUG (Pentosan Polysulfate Sodium [Elmiron] 100 MG Capsule) PO PRN (10:52)
[2023-02-24] MEDS ORDERED: LACTULOSE 20 GM/30 ML CUP PO PRN (10:52)
[2023-02-24] MEDS ORDERED: MAG HYDROX/AL HYDROX/SIMETH 30 ML CUP PO PRN (10:54)
[2023-02-24] MEDS ORDERED: ONDANSETRON 4 MG/2 ML VIAL IVP PRN (10:54)
[2023-02-24] MEDS ORDERED: GENTAMICIN PER PHARMACY MISCELLANE SCH (11:00)
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
--- NOTE | 2023-02-24 11:38 | FL ---
EXAMINATION TYPE: FL Perc Nephrostomy New Access DATE OF EXAM: 02/24/2023 COMPARISON: NONE HISTORY: Right renal calculus Procedure had been discussed with the patient by Dr. Culp, risks, benefits, alternatives, were dis cussed and any questions were answered. Informed consent was obtained. The patient was in a semipro ne position prepped and draped on the OR table in the usual sterile fashion. Utilizing a 15 cm lengt h Chiba needle a single pass was made into a lower pole posterior calyx under fluoroscopic guidance. An 0.018 guidewire is passed through the needle and there was placement of a 6-Chinese catheter sheat h system. There was conversion to a 0.035 system was performed with passage of a guidewire into the ureter utilizing a directional catheter. A second safety wire was placed. Remaining portion of pro cedure performed by . Approximately 5 minutes and 34 of fluoroscopy was provided. 76.161 D AP. IMPRESSION: 1. Successful intraoperative right nephrostomy prior to nephrolithotomy.
[2023-02-24] MEDS ORDERED: BUPRENORPHINE TRANSDERM SCH (12:00)
[2023-02-24] MEDS: DEXTROSE 5%-0.45% NACL 1,000 ML IV SCH ×2 (13:01→21:41)
[2023-02-24] MEDS: METOPROLOL TARTRATE 50 MG TAB PO SCH ×2 (13:14→20:39)
[2023-02-24] MEDS: GENTAMICIN 160 MG in SODIUM CHLORIDE 0.9% 100 ML IVPB SCH (18:04)
[2023-02-24] MEDS: SYMBICORT 160-4.5 MCG INHALER INHALATION SCH (18:45)
[2023-02-24] MEDS: lamoTRIgine 25 MG TAB PO SCH (20:34)
[2023-02-24] MEDS: lamoTRIgine 100 MG TAB PO SCH (20:34)
[2023-02-24] MEDS: DULOXETINE HCL 30 MG PO SCH (20:35)
[2023-02-24] MEDS: PREGABALIN 100 MG CAP PO SCH (20:35)
[2023-02-24] MEDS ORDERED: LATANOPROST 0.005% OPHTH DROPS 2.5 ML BTL BOTH EYES SCH (21:00)
[2023-02-24] MEDS ORDERED: CYCLOBENZAPRINE 10 MG TAB PO SCH (21:00)
[2023-02-24] MEDS ORDERED: MELATONIN 5 MG TABLET PO SCH (21:00)
[2023-02-24] MEDS ORDERED: ATORVASTATIN 10 MG TAB PO SCH (21:00)
[2023-02-24] MEDS ORDERED: NON FORMULARY DRUG (Suvorexant [Belsomra] 10 MG Tablet) PO SCH (21:00)
[2023-02-25] MEDS: GENTAMICIN 160 MG in SODIUM CHLORIDE 0.9% 100 ML IVPB SCH ×2 (01:14→11:37)
[2023-02-25] MEDS: LACTATED RINGERS 1,000 ML IV SCH (04:56)
[2023-02-25] MEDS: oxyCODONE-APAP 7.5-325MG 1 EACH TAB PO PRN ×2 (05:50→12:52)
[2023-02-25] MEDS: METOPROLOL TARTRATE 50 MG TAB PO SCH ×2 (05:51→14:36)
[2023-02-25] MEDS: DEXTROSE 5%-0.45% NACL 1,000 ML IV SCH (05:52)
[2023-02-25] MEDS ORDERED: TAMSULOSIN 0.4 MG CAP.ER.24H PO SCH (09:00)
[2023-02-25] MEDS ORDERED: CYANOCOBALAMIN 500 MCG TAB PO SCH (09:00)
[2023-02-25] MEDS ORDERED: CHOLECALCIFEROL 25 MCG (1000 IU) TABLET PO SCH (09:00)
[2023-02-25] MEDS ORDERED: GENTAMICIN TROUGH DUE 1 EACH MISC MISCELLANE ONE (09:30)
[2023-02-25] MEDS: SYMBICORT 160-4.5 MCG INHALER INHALATION SCH (09:56)
[2023-02-25] MEDS: DULOXETINE HCL 30 MG PO SCH (10:08)
[2023-02-25] MEDS: lamoTRIgine 25 MG TAB PO SCH (10:11)
[2023-02-25] MEDS: PREGABALIN 100 MG CAP PO SCH (10:11)
[2023-02-25] MEDS: lamoTRIgine 100 MG TAB PO SCH (10:11)
[2023-02-25 12:17] LABS: African American GFR (CKD) >90 (>60 ml/min/1.73 sqM); Non-African American GFR(CKD) >90 (>60 ml/min/1.73 sqM)
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
[2023-02-25 14:19] VITALS: BP 115/76; PULSE 103; TEMP 98.8
[2023-02-25 14:49] VITALS: RESP 16
== END 2023-02-25 15:35 ==
LOC: OR 06:49 → 6NMEDSUR 11:10 → OR 02-25 15:35
PROVIDERS: ATTEND Urology
DX: N20.0 Calculus of kidney (principal); E11.9 Type 2 diabetes mellitus without complications; I10 Essential (primary) hypertension; E78.5 Hyperlipidemia, unspecified; K21.9 Gastro-esophageal reflux disease without esophagitis; Z87.442 Personal history of urinary calculi; Z98.1 Arthrodesis status; Z87.891 Personal history of nicotine dependence; Z82.49 Family history of ischemic heart disease and other diseases of the circulatory system; Z79.51 Long term (current) use of inhaled steroids; Z79.899 Other long term (current) drug therapy; Z79.1 Long term (current) use of non-steroidal anti-inflammatories (NSAID)
CPT/HCPCS: 94640 ×2; 94760; 86900; 86901; 80170 ×2; 82565; 86850; 82365; 50432; 74018; 52332; 50081; C1769 ×2; C2628; C1894; C1729; J3370; J1580 ×3; J1100; J2710; J2405; J3010; J2370; J2704; Q9967; J2001

== ENCOUNTER 2023-07-30 10:18 | Inpatient (IN) | payer MEDICARE, OTHER ==
[2023-07-30] MEDS ORDERED: SODIUM CHLORIDE 0.9% 1,000 ML IV STA (10:28)
[2023-07-30] MEDS ORDERED: SODIUM CHLORIDE 0.9% 1,000 ML IV ONE (10:28)
[2023-07-30] MEDS ORDERED: KETOROLAC 15 MG/ML 1 ML VIAL IVP STA (10:29)
--- NOTE | 2023-07-30 10:44 | ED ---
General Adult HPI - General Chief complaint: Altered Mental Status Stated complaint: AMS Time Seen by Provider: 07/30/23 10:21 Source: patient, EMS, RN notes reviewed, old records reviewed Mode of arrival: EMS Limitations: altered mental status - History of Present Illness Initial comments: 57-year-old male remote history of traumatic brain injury, nonambulatory with right-sided hemiplegia presents for evaluation of increased confusion. Patient presents from a senior care for evaluation of altered level consciousness which began this morning. Patient was difficult to arouse. He had taken opiate pain medication around 6 AM but at around 10 AM he was more altered than usual. Patient is able to answer simple questions and follow commands. He denies any pain complaints. He's had a history of diarrhea and was going to be tested for Clostridium difficile but had apparently been given Imodium yesterday. No reported stool since that time. - Related Data Home Medications Medication Instructions Recorded Confirmed Budesonide/Formoterol Fumarate 2 puff INHALATION RT-BID 03/18/21 07/30/23 [Symbicort 160-4.5 Mcg Inhaler] Metoprolol Tartrate [Lopressor] 50 mg PO TID@0600,1400,2200 03/18/21 07/30/23 Cholecalciferol (Vitamin D3) 125 mcg PO DAILY 11/12/21 07/30/23 [Vitamin D3 (125 MCG = 5,000 IU)] Atorvastatin [Lipitor] 10 mg PO HS 12/26/22 07/30/23 Cyclobenzaprine [Flexeril] 10 mg PO HS 12/26/22 07/30/23 DULoxetine HCL [Drizalma Sprinkle] 30 mg PO BID 12/26/22 07/30/23 Latanoprost [Latanoprost 0.005%] 1 drop BOTH EYES HS 12/26/22 07/30/23 Meloxicam [Mobic] 15 mg PO DAILY 12/26/22 07/30/23 Tamsulosin [Flomax] 0.4 mg PO DAILY 12/26/22 07/30/23 lamoTRIgine [LaMICtal Xr] 250 mg PO DAILY 12/26/22 07/30/23 Acetaminophen Tab [Tylenol] 650 mg PO Q6HR PRN 01/12/23 07/30/23 Melatonin 15 mg PO HS 01/12/23 07/30/23 Cyanocobalamin (Vitamin B-12) 1,000 mcg PO DAILY 02/22/23 07/30/23 [Vitamin B-12] oxyCODONE-APAP 7.5-325MG [Percocet 1 tab PO Q6H PRN 02/22/23 07/30/23 7.5-325 mg] Buprenorphine [Butrans 10 MCG/HOUR] 1 patch TRANSDERM MO@2100 07/30/23 07/30/23 Ferrous Sulfate [Feosol] 325 mg PO DAILY 07/30/23 07/30/23 Loperamide HCl [Imodium A-D] 2 - 4 mg PO QID PRN 07/30/23 07/30/23 metFORMIN HCL [Glucophage] 500 mg PO BID 07/30/23 07/30/23 Previous Rx's Medication Instructions Recorded Pregabalin [Lyrica] 100 mg PO BID #6 cap 12/30/22 Allergies Allergy/AdvReac Type Severity Reaction Status Date / Time Penicillins Allergy Unknown Verified 07/30/23 10:54 Review of Systems ROS Statement: Those systems with pertinent positive or pertinent negative responses have been documented in the HPI. ROS Other: All systems not noted in ROS Statement are negative. Past Medical History Past Medical History: Heart Failure, CVA/TIA, Diabetes Mellitus, GERD/Reflux, Hyperlipidemia, Hypertension, Liver Disease, Neurologic Disorder, Pneumonia, Thyroid Disorder Additional Past Medical History / Comment(s): Traumatic brain injury History of Any Multi-Drug Resistant Organisms: None Reported Date of last positivie culture/infection: 02/11/23 MDRO Source:: listed under serology in lab reports Past Surgical History: Back Surgery Additional Past Surgical History / Comment(s): Lumbar fusion, colonoscopy, peg, trach. Past Anesthesia/Blood Transfusion Reactions: No Reported Reaction Past Psychological History: Anxiety, Depression Smoking Status: Never smoker Past Alcohol Use History: Occasional Past Drug Use History: None Reported - Past Family History Mother Family Medical History: Hypertension Father Family Medical History: No Reported History General Exam Limitations: altered mental status General appearance: lethargic Head exam: Present: normocephalic Eye exam: Present: PERRL ENT exam: Present: mucous membranes dry Neck exam: Present: normal inspection. Absent: tenderness, meningismus Respiratory exam: Present: respiratory distress, rhonchi Cardiovascular Exam: Present: normal rhythm, tachycardia GI/Abdominal exam: Present: soft, distended. Absent: tenderness, guarding, rebound Extremities exam: Present: pedal edema Neurological exam: Present: alert, motor sensory deficit (Right hemiplegia) Skin exam: Present: warm, diaphoretic Course Vital Signs 07/30/23 07/30/23 07/30/23 10:25 10:30 11:00 Temperature 101.3 F H Pulse Rate 137 H 137 H 137 H Respiratory 20 37 H 40 H Rate Blood Pressure 117/71 117/71 115/77 O2 Sat by Pulse 94 L 94 L 95 Oximetry 07/30/23 07/30/23 07/30/23 11:30 12:00 12:30 Temperature Pulse Rate 135 H 134 H 135 H Respiratory 36 H 40 H 38 H Rate Blood Pressure 102/61 109/56 127/92 O2 Sat by Pulse 95 96 96 Oximetry - Reevaluation(s) Reevaluation #1: 07/30/23 13:33 CT abdomen and pelvis has been ordered, results pending Medical Decision Making - Medical Decision Making Was pt. sent in by a medical professional or institution (, PA, CAREER COORDINATOR, urgent care, hospital, or senior care...) When possible be specific @ -No Did you speak to anyone other than the patient for history (EMS, parent, family, police, friend...)? What history was obtained from this source @Paramedics Did you review nursing and triage notes (agree or disagree)? Why? @ -I reviewed and agree with nursing and triage notes Were old charts reviewed (outside hosp., previous admission, EMS record, old EKG, old radiological studies, urgent care reports/EKG's, senior care records)? Report findings @ -No old charts were reviewed Differential Diagnosis (chest pain, altered mental status, abdominal pain women, abdominal pain men, vaginal bleeding, weakness, fever, dyspnea, syncope, headache, dizziness, GI bleed, back pain, seizure, CVA, palpatations, mental health, musculoskeletal)? @ -[Differential Altered Mental Status: Hypoglycemia, DKA, hypercapnia, ETOH, overdose, CO poisoning, trauma, myxedema coma, HTN encephalopathy, infection, encephalitis, psychosis, intercranial hemorrhage, hepatic encephalopathy, meningitis, CVA, this is not meant to be an all-inclusive list EKG interpreted by me (3pts min.). @ Sinus tachycardia with incomplete right bundle-branch block, rate of 135, W[place] interval 150, QRS duration 101, QTC [address] segment elevation. X-rays interpreted by me (1pt min.). @ -No focal pneumonia CT interpreted by me (1pt min.). @ -None done U/S interpreted by me (1pt. min.). @ -None done What testing was considered but not performed or refused? (CT, X-rays, U/S, labs)? Why? @ -None What meds were considered but not given or refused? Why? @ -None Did you discuss the management of the patient with other professionals (professionals i.e. , PA, CAREER COORDINATOR, lab, RT, psych nurse, social service liaison, gun profiler, teacher, principal gifts officer, director case management)? Give summary @ -Case discussed with [facility] Was smoking cessation discussed for >3mins.? @ -No Was critical care preformed (if so, how long)? @ -No Were there social determinants of health that impacted care today? How? (Homelessness, low income, unemployed, alcoholism, drug addiction, transportation, low edu. Level, literacy, decrease access to med. care, fpc, rehab)? @ -No Was there de-escalation of care discussed even if they declined (Discuss DNR or withdrawal of care, Hospice)? DNR status @ -No What co-morbidities impacted this encounter? (DM, HTN, Smoking, COPD, CAD, Cancer, CVA, ARF, Chemo, Hep., AIDS, mental health diagnosis, sleep apnea, morbid obesity)? @ -[Traumatic brain injury, and mobility, recurrent UTI Was patient admitted / discharged? Hospital course, mention meds given and route, prescriptions, significant lab abnormalities, going to OR and other pertinent info. @Patient presenting with fever, confusion. Workup reveals a high white count, at 20. He has a lactic acid of 2.9, mild elevation in serum creatinine 1.32. He has signs of urinary tract infection. Culture is pending about the blood in the urine. The patient will be admitted to internal medicine with infectious disease on consult. Undiagnosed new problem with uncertain prognosis? @ -No Drug Therapy requiring intensive monitoring for toxicity (Heparin, Nitro, Insulin, Cardizem)? @ -No Were any procedures done? @ -No Diagnosis/symptom? @ -[Sepsis, UTI Acute, or Chronic, or Acute on Chronic? @Acute Uncomplicated (without systemic symptoms) or Complicated (systemic symptoms)? @ -Complicated Side effects of treatment? @ -No Exacerbation, Progression, or Severe Exacerbation? @ -No Poses a threat to life or bodily function? How? (Chest pain, USA, ME, pneumonia, PE, COPD, DKA, ARF, appy, cholecystitis, CVA, Diverticulitis, Homicidal, Suicidal, threat to staff... and all critical care pts) @ -[Yes, sepsis - Lab Data Result diagrams: 07/30/23 10:48 07/30/23 11:56 Lab Results 07/30/23 07/30/23 07/30/23 Range/Units 10:28 10:30 10:48 WBC 20.8 H (3.8-10.6) k/uL RBC 5.19 (4.30-5.90) m/uL Hgb 13.0 (13.0-17.5) gm/dL Hct 42.0 (39.0-53.0) % MCV 81.0 (80.0-100.0) fL MCH 25.0 (25.0-35.0) pg MCHC 30.9 L (31.0-37.0) g/dL RDW 16.4 H (11.5-15.5) % Plt Count 278 (150-450) k/uL MPV 8.4 Neutrophils % 86 % Lymphocytes % 7 % Monocytes % 4 % Eosinophils % 0 % Basophils % 0 % Neutrophils # 17.9 H (1.3-7.7) k/uL Lymphocytes # 1.5 (1.0-4.8) k/uL Monocytes # 0.9 (0-1.0) k/uL Eosinophils # 0.1 (0-0.7) k/uL Basophils # 0.0 (0-0.2) k/uL Hypochromasia Moderate Anisocytosis Slight PT (9.0-12.0) sec INR (<1.2) APTT (22.0-30.0) sec VBG pH (7.31-7.41) VBG pCO2 (37-51) mmHg VBG HCO3 (24-28) mmol/L Sodium (137-145) mmol/L Potassium (3.5-5.1) mmol/L Chloride (98-107) mmol/L Carbon Dioxide (22-30) mmol/L Anion Gap mmol/L BUN (9-20) mg/dL Creatinine (0.66-1.25) mg/dL Est GFR (CKD-EPI)AfAm (>60 ml/min/1.73 sqM) Est GFR (CKD-EPI)NonAf (>60 ml/min/1.73 sqM) Glucose (74-99) mg/dL POC Glucose (mg/dL) (70-110) mg/dL POC Glu Rehabilitation Construction Specialist ID Plasma Lactic Acid Smith 2.9 H* (0.7-2.0) mmol/L Calcium (8.4-10.2) mg/dL Magnesium (1.6-2.3) mg/dL Total Bilirubin (0.2-1.3) mg/dL AST (17-59) U/L ALT (4-49) U/L Alkaline Phosphatase (38-126) U/L Ammonia 27 (<30) umol/L Total Protein (6.3-8.2) g/dL Albumin (3.5-5.0) g/dL Urine Color Urine Appearance (Clear) Urine pH (5.0-8.0) Ur Specific [place] (1.001-1.035) Urine Protein (Negative) Urine Glucose (UA) (Negative) Urine Ketones (Negative) Urine Blood (Negative) Urine Nitrite (Negative) Urine Bilirubin (Negative) Urine Urobilinogen (<2.0) mg/dL Ur Leukocyte Esterase (Negative) Urine RBC (0-5) /hpf Urine WBC (0-5) /hpf Ur Squamous Epith Cells (0-4) /hpf Hyaline Casts (0-2) /lpf Urine Mucus (None) /hpf Influenza Type A (PCR) Not Detected (Not Detectd) Influenza Type B (PCR) Not Detected (Not Detectd) RSV (PCR) Not Detected (Not Detectd) SARS-CoV-2 (PCR) Not Detected (Not Detectd) 07/30/23 07/30/23 07/30/23 Range/Units 10:48 10:56 11:56 WBC (3.8-10.6) k/uL RBC (4.30-5.90) m/uL Hgb (13.0-17.5) gm/dL Hct (39.0-53.0) % MCV (80.0-100.0) fL MCH (25.0-35.0) pg MCHC (31.0-37.0) g/dL RDW (11.5-15.5) % Plt Count (150-450) k/uL MPV Neutrophils % % Lymphocytes % % Monocytes % % Eosinophils % % Basophils % % Neutrophils # (1.3-7.7) k/uL Lymphocytes # (1.0-4.8) k/uL Monocytes # (0-1.0) k/uL Eosinophils # (0-0.7) k/uL Basophils # (0-0.2) k/uL Hypochromasia Anisocytosis PT (9.0-12.0) sec INR (<1.2) APTT (22.0-30.0) sec VBG pH 7.43 H (7.31-7.41) VBG pCO2 32 L (37-51) mmHg VBG HCO3 21 L (24-28) mmol/L Sodium (137-145) mmol/L Potassium (3.5-5.1) mmol/L Chloride (98-107) mmol/L Carbon Dioxide (22-30) mmol/L Anion Gap mmol/L BUN (9-20) mg/dL Creatinine (0.66-1.25) mg/dL Est GFR (CKD-EPI)AfAm (>60 ml/min/1.73 sqM) Est GFR (CKD-EPI)NonAf (>60 ml/min/1.73 sqM) Glucose (74-99) mg/dL POC Glucose (mg/dL) 146 H (70-110) mg/dL POC Glu Rehabilitation Construction Specialist ID Alcon, John Plasma Lactic Acid Smith (0.7-2.0) mmol/L Calcium (8.4-10.2) mg/dL Magnesium (1.6-2.3) mg/dL Total Bilirubin (0.2-1.3) mg/dL AST (17-59) U/L ALT (4-49) U/L Alkaline Phosphatase (38-126) U/L Ammonia (<30) umol/L Total Protein (6.3-8.2) g/dL Albumin (3.5-5.0) g/dL Urine Color Yellow Urine Appearance Cloudy (Clear) Urine pH 6.0 (5.0-8.0) Ur Specific [place] 1.031 (1.001-1.035) Urine Protein 2+ H (Negative) Urine Glucose (UA) Trace H (Negative) Urine Ketones Negative (Negative) Urine Blood Large H (Negative) Urine Nitrite Negative (Negative) Urine Bilirubin 1+ H (Negative) Urine Urobilinogen 2.0 (<2.0) mg/dL Ur Leukocyte Esterase Moderate H (Negative) Urine RBC >182 H (0-5) /hpf Urine WBC 46 H (0-5) /hpf Ur Squamous Epith Cells 4 (0-4) /hpf Hyaline Casts 4 H (0-2) /lpf Urine Mucus Many H (None) /hpf Influenza Type A (PCR) (Not Detectd) Influenza Type B (PCR) (Not Detectd) RSV (PCR) (Not Detectd) SARS-CoV-2 (PCR) (Not Detectd) 07/30/23 07/30/23 Range/Units 11:56 11:56 WBC (3.8-10.6) k/uL RBC (4.30-5.90) m/uL Hgb (13.0-17.5) gm/dL Hct (39.0-53.0) % MCV (80.0-100.0) fL MCH (25.0-35.0) pg MCHC (31.0-37.0) g/dL RDW (11.5-15.5) % Plt Count (150-450) k/uL MPV Neutrophils % % Lymphocytes % % Monocytes % % Eosinophils % % Basophils % % Neutrophils # (1.3-7.7) k/uL Lymphocytes # (1.0-4.8) k/uL Monocytes # (0-1.0) k/uL Eosinophils # (0-0.7) k/uL Basophils # (0-0.2) k/uL Hypochromasia Anisocytosis PT 12.5 H (9.0-12.0) sec INR 1.2 H (<1.2) APTT 24.8 (22.0-30.0) sec VBG pH (7.31-7.41) VBG pCO2 (37-51) mmHg VBG HCO3 (24-28) mmol/L Sodium 142 (137-145) mmol/L Potassium 4.7 (3.5-5.1) mmol/L Chloride 107 (98-107) mmol/L Carbon Dioxide 23 (22-30) mmol/L Anion Gap 12 mmol/L BUN 17 (9-20) mg/dL Creatinine 1.32 H (0.66-1.25) mg/dL Est GFR (CKD-EPI)AfAm 69 (>60 ml/min/1.73 sqM) Est GFR (CKD-EPI)NonAf 60 (>60 ml/min/1.73 sqM) Glucose 148 H (74-99) mg/dL POC Glucose (mg/dL) (70-110) mg/dL POC Glu Rehabilitation Construction Specialist ID Plasma Lactic Acid Smith (0.7-2.0) mmol/L Calcium 8.8 (8.4-10.2) mg/dL Magnesium 1.9 (1.6-2.3) mg/dL Total Bilirubin 0.7 (0.2-1.3) mg/dL AST 35 (17-59) U/L ALT 33 (4-49) U/L Alkaline Phosphatase 111 (38-126) U/L Ammonia (<30) umol/L Total Protein 6.9 (6.3-8.2) g/dL Albumin 3.6 (3.5-5.0) g/dL Urine Color Urine Appearance (Clear) Urine pH (5.0-8.0) Ur Specific [place] (1.001-1.035) Urine Protein (Negative) Urine Glucose (UA) (Negative) Urine Ketones (Negative) Urine Blood (Negative) Urine Nitrite (Negative) Urine Bilirubin (Negative) Urine Urobilinogen (<2.0) mg/dL Ur Leukocyte Esterase (Negative) Urine RBC (0-5) /hpf Urine WBC (0-5) /hpf Ur Squamous Epith Cells (0-4) /hpf Hyaline Casts (0-2) /lpf Urine Mucus (None) /hpf Influenza Type A (PCR) (Not Detectd) Influenza Type B (PCR) (Not Detectd) RSV (PCR) (Not Detectd) SARS-CoV-2 (PCR) (Not Detectd) Disposition Clinical Impression: Sepsis, Fever Disposition: ADMITTED IP TO THIS HOSP Condition: Serious Is patient prescribed a controlled substance at d/c from ED?: No Referrals: None,Stated [REFERRING] - 1-2 days Time of Disposition: 13:33
[2023-07-30 10:58] LABS: Glucose,Whole Blood 146 mg/dL (70-110)
[2023-07-30 10:59] LABS: Anisocytosis Slight; Basophils % (A) 0 %; Eosinophils # (A) 0.1 k/uL (0-0.7); Eosinophils % (A) 0 %; Hypochromasia Moderate; Lymphocytes # (A) 1.5 k/uL (1.0-4.8); Lymphocytes % (A) 7 %; MCHC 30.9 g/dL (31.0-37.0); Mean Platelet Volume 8.4; Monocytes # (A) 0.9 k/uL (0-1.0); Monocytes % (A) 4 %; Neutrophils # (A) 17.9 k/uL (1.3-7.7); Neutrophils % (A) 86 %; Platelet Count 278 k/uL (150-450); RBC 5.19 m/uL (4.30-5.90); RDW 16.4 % (11.5-15.5); WBC 20.8 k/uL (3.8-10.6)
[2023-07-30 11:03] LABS: VBG PH 7.43 (7.31-7.41)
[2023-07-30 11:50] LABS: Lactic Acid, Venous 2.9 mmol/L (0.7-2.0)
[2023-07-30] MEDS ORDERED: ACETAMINOPHEN IV (For NPO) 1,000 MG in EMPTY BAG 1 BAG IVPB STA (11:52)
--- NOTE | 2023-07-30 11:57 | XR ---
EXAMINATION TYPE: XR chest 1V portable DATE OF EXAM: 07/30/2023 11:31 AM CLINICAL INDICATION:Male, 57 years old with history of altered mental status; [facility] COMPARISON: Chest radiographs from 12/27/2022 TECHNIQUE: XR chest 1V portable Frontal view of the chest. FINDINGS: Lungs/Pleura: Low lung volumes are present. There is no evidence of pleural effusion, focal consolida tion, or pneumothorax. Pulmonary vascularity: Unremarkable. Heart/mediastinum: Cardiomediastinal silhouette is prominent in size. Musculoskeletal: No acute osseous pathology. There is fixation hardware in the lower cervical spine. Other findings: Nerve stimulator device project over the spine. IMPRESSION: Low lung volumes with a generalized hazy appearance which could represent atelectasis versus pulmonar y edema correlate with serum BNP.
[2023-07-30 12:29] LABS: Appearance,Urine Cloudy (Clear); Bilirubin,Urine 1+ (Negative); Blood,Urine Large (Negative); Glucose,Urine (UA) Trace (Negative); Hyaline Casts,Urine 4 /lpf (0-2); Ketones,Urine Negative (Negative); Leukocyte Esterase,Urine Moderate (Negative); Mucus,Urine Many /hpf; Nitrite,Urine Negative (Negative); Protein,Urine 2+ (Negative); RBC,Urine >182 /hpf (0-5); Specific Gravity,Urine 1.031 (1.001-1.035); Squamous Epithelial Cell,Urine 4 /hpf (0-4); WBC,Urine 46 /hpf (0-5)
[2023-07-30 12:30] LABS: Color,Urine Yellow
[2023-07-30 12:31] LABS: INR 1.2 (<1.2); Partial Thromboplastin Time 24.8 sec (22.0-30.0); Prothrombin Time 12.5 sec (9.0-12.0)
[2023-07-30 12:50] LABS: ALT 33 U/L (4-49); AST 35 U/L (17-59); African American GFR (CKD) 69 (>60 ml/min/1.73 sqM); Albumin 3.6 g/dL (3.5-5.0); Alkaline Phosphatase 111 U/L (38-126); Anion Gap 12 mmol/L; Blood Urea Nitrogen 17 mg/dL (9-20); Calcium 8.8 mg/dL (8.4-10.2); Carbon Dioxide 23 mmol/L (22-30); Chloride 107 mmol/L (98-107); Glucose 148 mg/dL (74-99); Magnesium 1.9 mg/dL (1.6-2.3); Non-African American GFR(CKD) 60 (>60 ml/min/1.73 sqM); Potassium 4.7 mmol/L (3.5-5.1); Sodium 142 mmol/L (137-145); Total Bilirubin 0.7 mg/dL (0.2-1.3); Total Protein 6.9 g/dL (6.3-8.2)
[2023-07-30] MEDS ORDERED: SODIUM CHLORIDE 0.9% 500 ML 500 ML IV ONE ×2 (13:00→15:55)
[2023-07-30] MEDS ORDERED: NALOXONE 0.4 MG/ML 1 ML VIAL IV PRN (13:24)
[2023-07-30] MEDS ORDERED: ACETAMINOPHEN TAB 325 MG TAB PO PRN (13:24)
[2023-07-30] MEDS ORDERED: SODIUM CHLORIDE 0.9% 1,000 ML IV SCH (13:30)
--- NOTE | 2023-07-30 14:48 | CT ---
EXAMINATION TYPE: CT abdomen pelvis wo con DATE OF EXAM: 07/30/2023 COMPARISON: 12/26/2022 HISTORY: 57-year-old male fever/diarrhea CT DLP: 2897.2 mGycm. Automated exposure control for dose reduction was used. TECHNIQUE: Contiguous axial scanning of the abdomen and pelvis without IV contrast. Coronal and sagit michel reconstructions performed. FINDINGS: The heart is upper limits of normal in size without pericardial effusion. Prominent straightening ate lectasis or scarring at the posterior lung bases. Spinal stimulator array along the lower thoracic spinal canal. Generator device along the left manager statistical ior lower back. The liver is enlarged at 22.5 cm with low attenuation of the hepatic parenchyma. Artifacts are present due to patient's arms down by his side and body habitus. Noncontrast appearance of the gallbladder, right adrenal gland, left kidney, spleen with inferior hil ar splenule, and pancreas show no gross abnormality. Similar mild thickening of the left adrenal gland without discrete nodularity. Lobulated contour to the right kidney. No hydronephrosis on either side. No dilated small bowel, free fluid, or free air. No mesenteric or retroperitoneal lymphadenopathy. There is pancolonic wall thickening. More moderate to severe thickening near the hepatic flexure of t he colon where there is also pericolonic inflammatory fat stranding and a couple adjacent cluster of mildly enlarged mesenteric lymph nodes measuring up to 1.2 cm. Bladder is collapsed by Chow catheter. Patulous bilateral inguinal canals. No abnormal fluid collect ion in the pelvis or pelvic lymphadenopathy. Bones: Status post L4-S1 posterior fusion changes. Moderate spondylotic change throughout the remaind er of the visualized spine. IMPRESSION: 1. Moderate diaz colitis though with more severe colitis at the hepatic flexure of the colon. Associa geovanny pericolonic stranding/inflammation. Some reactive adjacent clustered mesenteric lymph nodes. Allison elate for infectious or inflammatory causes. No abscess or free air. 2. Given the greater degree of wall thickening at the hepatic flexure, recommend direct visualizatio n following successful treatment to exclude underlying neoplasm. 3. Hepatomegaly at 22.5 cm with at least moderate hepatic steatosis. Appropriate clinical management recommended.
[2023-07-30] MEDS ORDERED: metroNIDAZOLE-NS PMX 500 MG in SALINE 1 100ML.BAG IVPB STA (14:52)
[2023-07-30] MEDS ORDERED: LEVOFLOXACIN 500MG-D5W PMX 500 MG in DEXTROSE/WATER 1 100ML.BAG IVPB STA (14:52)
[2023-07-30] MEDS ORDERED: DEXTROSE 50% SYRINGE 50 ML IVP PRN ×2 (15:05)
[2023-07-30] MEDS: METOPROLOL TARTRATE 5 MG/5 ML VIAL IVP PRN ×2 (15:31→15:56)
--- NOTE | 2023-07-30 15:31 | P.HPIM ---
History of Present Illness H&P Date: 07/30/23 Chief Complaint: Altered mental status * 57-year-old gentleman with past medical history significant for traumatic brain injury, history of CVA, TIA, congestive heart failure diastolic dysfunction, diabetes mellitus, hyperlipidemia, hypertension COPD presented to the emergency department with altered mentation * At the time of presentation patient was alert to person and hard to arouse. Workup initiated including CBC which showed white cell count of 20.8, platelet count of 278, venous blood gas obtained showed pH of 7.4, pCO2 of 32 * Serum chemistries showed sodium of 142 potassium 4.7 BUN 17 creatinine 1.3 to lactate of 2.9 upon admission * Urinalysis is obtained showed significant white blood cell count leukocyte esterase * Patient tested negative for influenza and Covid * Patient was given 1.5 L of fluid bolus followed by maintenance fluid. Serial lactate levels ordered * While in ER patient was noted to have an episode of paroxysmal SVT EKG obtained and IV Lopressor ordered caution with excessive fluid due to his concern for pulmonary vascular congestion REVIEW OF SYSTEMS: Limited secondary to patient mentation PHYSICAL EXAMINATION: GENERAL: The patient is alert and oriented x 1, drowsy and goes back to sleep HEENT: Pupils are round and equally reacting to light. EOMI. CARDIOVASCULAR: S1 and S2 present. No murmurs, rubs, or gallops. Tachycardia noted PULMONARY: Nasal cannula in place, decreased breath sounds bilaterally Sinus tachycardia noted ABDOMEN: Soft, nontender on palpation Chow cath in place MUSCULOSKELETAL: No joint swelling or deformity. NEUROLOGICAL: Neurological exam limited secondary to patient mentation Past Medical History Past Medical History: Heart Failure, CVA/TIA, Diabetes Mellitus, GERD/Reflux, Hyperlipidemia, Hypertension, Liver Disease, Neurologic Disorder, Pneumonia, Thyroid Disorder Additional Past Medical History / Comment(s): Traumatic brain injury History of Any Multi-Drug Resistant Organisms: None Reported Date of last positivie culture/infection: 02/11/23 MDRO Source:: listed under serology in lab reports Past Surgical History: Back Surgery Additional Past Surgical History / Comment(s): Lumbar fusion, colonoscopy, peg, trach. Past Anesthesia/Blood Transfusion Reactions: No Reported Reaction Past Psychological History: Anxiety, Depression Smoking Status: Never smoker Past Alcohol Use History: Occasional Past Drug Use History: None Reported - Past Family History Mother Family Medical History: Hypertension Father Family Medical History: No Reported History Medications and Allergies Home Medications Medication Instructions Recorded Confirmed Type Budesonide/Formoterol Fumarate 2 puff INHALATION RT-BID 03/18/21 07/30/23 History [Symbicort 160-4.5 Mcg Inhaler] Metoprolol Tartrate [Lopressor] 50 mg PO TID@0600,1400,2200 03/18/21 07/30/23 History Cholecalciferol (Vitamin D3) 125 mcg PO DAILY 11/12/21 07/30/23 History [Vitamin D3 (125 MCG = 5,000 IU)] Atorvastatin [Lipitor] 10 mg PO HS 12/26/22 07/30/23 History Cyclobenzaprine [Flexeril] 10 mg PO HS 12/26/22 07/30/23 History DULoxetine HCL [Drizalma Sprinkle] 30 mg PO BID 12/26/22 07/30/23 History Latanoprost [Latanoprost 0.005%] 1 drop BOTH EYES HS 12/26/22 07/30/23 History Meloxicam [Mobic] 15 mg PO DAILY 12/26/22 07/30/23 History Tamsulosin [Flomax] 0.4 mg PO DAILY 12/26/22 07/30/23 History lamoTRIgine [LaMICtal Xr] 250 mg PO DAILY 12/26/22 07/30/23 History Pregabalin [Lyrica] 100 mg PO BID #6 cap 12/30/22 07/30/23 Rx Acetaminophen Tab [Tylenol] 650 mg PO Q6HR PRN 01/12/23 07/30/23 History Melatonin 15 mg PO HS 01/12/23 07/30/23 History Cyanocobalamin (Vitamin B-12) 1,000 mcg PO DAILY 02/22/23 07/30/23 History [Vitamin B-12] oxyCODONE-APAP 7.5-325MG [Percocet 1 tab PO Q6H PRN 02/22/23 07/30/23 History 7.5-325 mg] Buprenorphine [Butrans 10 MCG/HOUR] 1 patch TRANSDERM MO@2100 07/30/23 07/30/23 History Ferrous Sulfate [Feosol] 325 mg PO DAILY 07/30/23 07/30/23 History Loperamide HCl [Imodium A-D] 2 - 4 mg PO QID PRN 07/30/23 07/30/23 History metFORMIN HCL [Glucophage] 500 mg PO BID 07/30/23 07/30/23 History Allergies Allergy/AdvReac Type Severity Reaction Status Date / Time Penicillins Allergy Unknown Verified 07/30/23 10:54 Physical Exam Vitals: Vital Signs Temp Pulse Resp BP Pulse Ox 07/30/23 14:30 99.4 F 144 H 30 H 103/70 95 07/30/23 14:00 138 H 30 H 97/74 96 07/30/23 13:30 135 H 30 H 98/38 95 07/30/23 13:00 134 H 24 102/88 95 07/30/23 12:30 135 H 38 H 127/92 96 07/30/23 12:00 134 H 40 H 109/56 96 07/30/23 11:30 135 H 36 H 102/61 95 07/30/23 11:00 137 H 40 H 115/77 95 07/30/23 10:30 137 H 37 H 117/71 94 L 07/30/23 10:25 101.3 F H 137 H 20 117/71 94 L Intake and Output 07/30/23 07/30/23 07/30/23 06:59 14:59 22:59 Other: Weight 176.901 kg Results CBC & Chem 7: 07/30/23 10:48 07/30/23 11:56 Labs: Abnormal Lab Results - Last 24 Hours (Table) 07/30/23 07/30/23 07/30/23 Range/Units 10:28 10:48 10:48 WBC 20.8 H (3.8-10.6) k/uL MCHC 30.9 L (31.0-37.0) g/dL RDW 16.4 H (11.5-15.5) % Neutrophils # 17.9 H (1.3-7.7) k/uL PT (9.0-12.0) sec INR (<1.2) VBG pH 7.43 H (7.31-7.41) VBG pCO2 32 L (37-51) mmHg VBG HCO3 21 L (24-28) mmol/L Creatinine (0.66-1.25) mg/dL Glucose (74-99) mg/dL POC Glucose (mg/dL) (70-110) mg/dL Plasma Lactic Acid Smith 2.9 H* (0.7-2.0) mmol/L Urine Protein (Negative) Urine Glucose (UA) (Negative) Urine Blood (Negative) Urine Bilirubin (Negative) Ur Leukocyte Esterase (Negative) Urine RBC (0-5) /hpf Urine WBC (0-5) /hpf Hyaline Casts (0-2) /lpf Urine Mucus (None) /hpf 07/30/23 07/30/23 07/30/23 Range/Units 10:56 11:56 11:56 WBC (3.8-10.6) k/uL MCHC (31.0-37.0) g/dL RDW (11.5-15.5) % Neutrophils # (1.3-7.7) k/uL PT (9.0-12.0) sec INR (<1.2) VBG pH (7.31-7.41) VBG pCO2 (37-51) mmHg VBG HCO3 (24-28) mmol/L Creatinine 1.32 H (0.66-1.25) mg/dL Glucose 148 H (74-99) mg/dL POC Glucose (mg/dL) 146 H (70-110) mg/dL Plasma Lactic Acid Smith (0.7-2.0) mmol/L Urine Protein 2+ H (Negative) Urine Glucose (UA) Trace H (Negative) Urine Blood Large H (Negative) Urine Bilirubin 1+ H (Negative) Ur Leukocyte Esterase Moderate H (Negative) Urine RBC >182 H (0-5) /hpf Urine WBC 46 H (0-5) /hpf Hyaline Casts 4 H (0-2) /lpf Urine Mucus Many H (None) /hpf 07/30/23 Range/Units 11:56 WBC (3.8-10.6) k/uL MCHC (31.0-37.0) g/dL RDW (11.5-15.5) % Neutrophils # (1.3-7.7) k/uL PT 12.5 H (9.0-12.0) sec INR 1.2 H (<1.2) VBG pH (7.31-7.41) VBG pCO2 (37-51) mmHg VBG HCO3 (24-28) mmol/L Creatinine (0.66-1.25) mg/dL Glucose (74-99) mg/dL POC Glucose (mg/dL) (70-110) mg/dL Plasma Lactic Acid Smith (0.7-2.0) mmol/L Urine Protein (Negative) Urine Glucose (UA) (Negative) Urine Blood (Negative) Urine Bilirubin (Negative) Ur Leukocyte Esterase (Negative) Urine RBC (0-5) /hpf Urine WBC (0-5) /hpf Hyaline Casts (0-2) /lpf Urine Mucus (None) /hpf Assessment and Plan Assessment: Assessment and plan * Sepsis secondary to urinary tract infection * Acute on chronic metabolic encephalopathy * Acute colitis * Supraventricular tachycardia * History of Traumatic brain injury with focal neurological deficit present on admission, history of resolved right-sided deficit * Diabetes mellitus type 2 * Morbid obesity * History of COPD * Hypertension * History of anxiety and depression * CT abdomen and pelvis obtained and reviewed shows extensive colitis, stool cultures to C. diff ordered * Continue patient on Levaquin and Flagyl infectious disease consulted * Cardiology consulted secondary to paroxysmal tachycardia despite fluid bolus. Given IV Lopressor continue on oral Lopressor once mentation improves * In regards to diabetes mellitus continue to hold metformin, continue correctio nal insulin. Accu-Cheks before meals at bedtime * In regards to history of urinary retention continue Flomax * CODE STATUS is full code
[2023-07-30] MEDS: SODIUM CHLORIDE 0.9% 1,000 ML IV SCH (15:33)
[2023-07-30] MEDS: SYMBICORT 160-4.5 MCG INHALER INHALATION SCH (19:48)
[2023-07-30] MEDS: INSULIN ASPART (NovoLOG) 100 UNIT/ML VIAL SQ SCH ×2 (19:50→21:47)
[2023-07-30] MEDS ORDERED: LATANOPROST 0.005% OPHTH DROPS 2.5 ML BTL BOTH EYES SCH (21:00)
[2023-07-30] MEDS ORDERED: ATORVASTATIN 10 MG TAB PO SCH (21:00)
[2023-07-30] MEDS ORDERED: MELATONIN 5 MG TABLET PO SCH (21:00)
[2023-07-30] MEDS: METOPROLOL TARTRATE 50 MG TAB PO SCH (21:17)
[2023-07-30] MEDS: VANCOMYCIN 125 MG CAPSULE PO SCH ×2 (21:22→22:26)
[2023-07-30] MEDS: PREGABALIN 100 MG CAP PO SCH (21:34)
[2023-07-30 21:38] LABS: Glucose,Whole Blood 190 mg/dL (70-110)
[2023-07-30] MEDS: DULOXETINE PO SCH (22:21)
[2023-07-30 23:23] LABS: ABG Base Excess -6.1 mmol/L; ABG HCO3 19 mmol/L (21-25); ABG Oxygen Saturation 96.2 % (94-97); ABG PCO2 33 mmHg (35-45); ABG PH 7.37 (7.35-7.45); ABG PO2 90 mmHg (83-108); ABG TCO2 20 mmol/L (19-24); Allen Test Performed? Yes
[2023-07-31] MEDS: metroNIDAZOLE-NS PMX 500 MG in SALINE 1 100ML.BAG IVPB SCH ×2 (00:38→09:12)
[2023-07-31] MEDS: SODIUM CHLORIDE 0.9% 1,000 ML IV SCH ×2 (00:42→13:37)
[2023-07-31] MEDS ORDERED: SODIUM CHLORIDE 0.9% 1,000 ML IV ONE ×2 (04:59→09:08)
[2023-07-31] MEDS ORDERED: ACETAMINOPHEN IV (For NPO) 1,000 MG in EMPTY BAG 1 BAG IVPB ONE (06:25)
[2023-07-31] MEDS ORDERED: ACETAMINOPHEN IV (For NPO) 1,000 MG in EMPTY BAG 1 BAG IVPB PRN (06:29)
[2023-07-31 06:30] LABS: ALT 86 U/L (4-49); AST 166 U/L (17-59); African American GFR (CKD) 53 (>60 ml/min/1.73 sqM); Albumin 2.9 g/dL (3.5-5.0); Alkaline Phosphatase 89 U/L (38-126); Anion Gap 13 mmol/L; Blood Urea Nitrogen 25 mg/dL (9-20); Calcium 7.4 mg/dL (8.4-10.2); Carbon Dioxide 14 mmol/L (22-30); Chloride 112 mmol/L (98-107); Glucose 135 mg/dL (74-99); Non-African American GFR(CKD) 46 (>60 ml/min/1.73 sqM); Sodium 139 mmol/L (137-145); Total Bilirubin 0.8 mg/dL (0.2-1.3); Total Protein 5.8 g/dL (6.3-8.2)
[2023-07-31 06:50] LABS: Anisocytosis Slight; Basophils % (A) 0 %; Eosinophils % (A) 0 %; HCT 43.9 % (39.0-53.0); HGB 13.2 gm/dL (13.0-17.5); Hypochromasia Marked; Lymphocytes # (A) 0.8 k/uL (1.0-4.8); Lymphocytes % (A) 4 %; MCH 25.5 pg (25.0-35.0); MCHC 30.1 g/dL (31.0-37.0); MCV 84.8 fL (80.0-100.0); Mean Platelet Volume 9.3; Monocytes # (A) 0.5 k/uL (0-1.0); Monocytes % (A) 3 %; Neutrophils # (A) 17.9 k/uL (1.3-7.7); Neutrophils % (A) 91 %; RBC 5.17 m/uL (4.30-5.90); RDW 16.4 % (11.5-15.5); WBC 19.6 k/uL (3.8-10.6)
[2023-07-31 06:51] LABS: Platelet Count 138 k/uL (150-450)
[2023-07-31] MEDS: DULOXETINE PO SCH (07:30)
[2023-07-31] MEDS: SYMBICORT 160-4.5 MCG INHALER INHALATION SCH (08:16)
[2023-07-31] MEDS ORDERED: SODIUM CHLORIDE 0.9% 500 ML 500 ML IV ONE ×2 (09:00→09:09)
[2023-07-31] MEDS ORDERED: ENOXAPARIN 40 MG/0.4 ML SYRINGE SQ SCH (09:00)
[2023-07-31] MEDS ORDERED: lamoTRIgine 100 MG TAB PO SCH ×2 (09:00)
[2023-07-31] MEDS ORDERED: TAMSULOSIN 0.4 MG CAP.ER.24H PO SCH (09:00)
[2023-07-31] MEDS ORDERED: FERROUS SULFATE 325 MG TAB PO SCH (09:00)
[2023-07-31] MEDS ORDERED: PANTOPRAZOLE 40 MG/10 ML VIAL IV SCH (09:00)
[2023-07-31] MEDS ORDERED: METOPROLOL TARTRATE 5 MG/5 ML VIAL IVP PRN (09:05)
[2023-07-31] MEDS: VANCOMYCIN 125 MG CAPSULE PO SCH ×2 (09:14→15:41)
[2023-07-31] MEDS: PREGABALIN 100 MG CAP PO SCH (09:15)
[2023-07-31 09:20] LABS: Glucose,Whole Blood 147 mg/dL (70-110)
[2023-07-31] MEDS: INSULIN ASPART (NovoLOG) 100 UNIT/ML VIAL SQ SCH ×2 (09:25→15:41)
--- NOTE | 2023-07-31 09:46 | P.CONS ---
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 also with a history of diabetes mellitus hypertension hyperlipidemia pneumonia patient is a residential resident has been sent to the ER for evaluation of decreased level of consciousness which apparently started the morning of presentation to the hospital patient also having diarrhea with the patient mention has been going on for the last few days with multiple stools denies any blood or mucus in the stool also has complaining of lower abdominal distention and pain however was unable to characterize the pain any further or any radiation mention the pain to be severe with nausea but no vomiting patient on presentation to the hospital was febrile with a temperature of 101.3 F patient was tachycardic but not hypotensive, patient did have a white count of 20.8 with a left shift kidney function creatinine was mildly elevated 1.32 lactic acid was elevated liver exams are normal urine test shows predominantly RBC on 46 WBC influenza RSV and COVID testing was negative patient did receive Rocephin and Levaquin in the ER patient did have CT of abdominal pelvis CT shows moderate pancolitis with more severe colitis of the hepatic flexure of the colon with associated pericolonic stranding inflammation stool for significant positive infectious disease was consulted for further management of antibiotic therapy Review of Systems Positive point and negatives has been mentioned in the HPI, complete review of systems was performed and all other systems are negative Past Medical History Past Medical History: Heart Failure, CVA/TIA, Diabetes Mellitus, GERD/Reflux, Hyperlipidemia, Hypertension, Liver Disease, Neurologic Disorder, Pneumonia, Thyroid Disorder Additional Past Medical History / Comment(s): Traumatic brain injury History of Any Multi-Drug Resistant Organisms: None Reported Year Discovered:: 02/11/23 MDRO Source:: listed under serology in lab reports Past Surgical History: Back Surgery Additional Past Surgical History / Comment(s): Lumbar fusion, colonoscopy, peg, trach. Past Anesthesia/Blood Transfusion Reactions: No Reported Reaction Past Psychological History: Anxiety, Depression Smoking Status: Never smoker Past Alcohol Use History: Occasional Past Drug Use History: None Reported - Past Family History Mother Family Medical History: Hypertension Father Family Medical History: No Reported History Medications and Allergies Allergies Allergy/AdvReac Type Severity Reaction Status Date / Time Penicillins Allergy Unknown Verified 07/30/23 10:54 Physical Exam Vitals: Vital Signs Temp Pulse Resp BP Pulse Ox 07/30/23 16:07 130 H 50 H 99/75 96 07/30/23 15:41 135 H 45 H 112/72 97 07/30/23 15:30 142 H 50 H 113/74 98 07/30/23 14:30 99.4 F 144 H 30 H 103/70 95 07/30/23 14:00 138 H 30 H 97/74 96 07/30/23 13:30 135 H 30 H 98/38 95 07/30/23 13:00 134 H 24 102/88 95 07/30/23 12:30 135 H 38 H 127/92 96 07/30/23 12:00 134 H 40 H 109/56 96 07/30/23 11:30 135 H 36 H 102/61 95 07/30/23 11:00 137 H 40 H 115/77 95 07/30/23 10:30 137 H 37 H 117/71 94 L 07/30/23 10:25 101.3 F H 137 H 20 117/71 94 L Intake and Output 07/30/23 07/30/23 07/30/23 06:59 14:59 22:59 Other: Weight 176.901 kg GENERAL DESCRIPTION: Middle-aged male lying in bed, no distress. No tachypnea or accessory muscle of respiration use. HEENT: Shows Pallor , no scleral icterus. Oral mucous membrane is dry. No pharyngeal erythema or thrush NECK: Trachea central, no thyromegaly. LUNGS: Unlabored breathing. Clear to auscultation anteriorly. . HEART: S1, S2, regular rate and rhythm. No loud murmur ABDOMEN: Soft, mild distention and tenderness EXTREMITIES: No edema of feet. SKIN: No rash, no masses palpable. NEUROLOGICAL: The patient is awake, alert, oriented x2, mood and affect normal. Results CBC & Chem 7: 07/31/23 06:00 07/31/23 06:00 Labs: Abnormal Lab Results - Last 24 Hours (Table) 07/30/23 07/30/23 07/30/23 Range/Units 10:28 10:48 10:48 WBC 20.8 H (3.8-10.6) k/uL MCHC 30.9 L (31.0-37.0) g/dL RDW 16.4 H (11.5-15.5) % Neutrophils # 17.9 H (1.3-7.7) k/uL PT (9.0-12.0) sec INR (<1.2) VBG pH 7.43 H (7.31-7.41) VBG pCO2 32 L (37-51) mmHg VBG HCO3 21 L (24-28) mmol/L Creatinine (0.66-1.25) mg/dL Glucose (74-99) mg/dL POC Glucose (mg/dL) (70-110) mg/dL Plasma Lactic Acid Smith 2.9 H* (0.7-2.0) mmol/L Urine Protein (Negative) Urine Glucose (UA) (Negative) Urine Blood (Negative) Urine Bilirubin (Negative) Ur Leukocyte Esterase (Negative) Urine RBC (0-5) /hpf Urine WBC (0-5) /hpf Hyaline Casts (0-2) /lpf Urine Mucus (None) /hpf C. difficile (EIA) Intrp (Negative) 07/30/23 07/30/23 07/30/23 Range/Units 10:56 11:56 11:56 WBC (3.8-10.6) k/uL MCHC (31.0-37.0) g/dL RDW (11.5-15.5) % Neutrophils # (1.3-7.7) k/uL PT (9.0-12.0) sec INR (<1.2) VBG pH (7.31-7.41) VBG pCO2 (37-51) mmHg VBG HCO3 (24-28) mmol/L Creatinine 1.32 H (0.66-1.25) mg/dL Glucose 148 H (74-99) mg/dL POC Glucose (mg/dL) 146 H (70-110) mg/dL Plasma Lactic Acid Smith (0.7-2.0) mmol/L Urine Protein 2+ H (Negative) Urine Glucose (UA) Trace H (Negative) Urine Blood Large H (Negative) Urine Bilirubin 1+ H (Negative) Ur Leukocyte Esterase Moderate H (Negative) Urine RBC >182 H (0-5) /hpf Urine WBC 46 H (0-5) /hpf Hyaline Casts 4 H (0-2) /lpf Urine Mucus Many H (None) /hpf C. difficile (EIA) Intrp (Negative) 07/30/23 07/30/23 07/30/23 Range/Units 11:56 13:50 16:00 WBC (3.8-10.6) k/uL MCHC (31.0-37.0) g/dL RDW (11.5-15.5) % Neutrophils # (1.3-7.7) k/uL PT 12.5 H (9.0-12.0) sec INR 1.2 H (<1.2) VBG pH (7.31-7.41) VBG pCO2 (37-51) mmHg VBG HCO3 (24-28) mmol/L Creatinine (0.66-1.25) mg/dL Glucose (74-99) mg/dL POC Glucose (mg/dL) (70-110) mg/dL Plasma Lactic Acid Smith 4.6 H* (0.7-2.0) mmol/L Urine Protein (Negative) Urine Glucose (UA) (Negative) Urine Blood (Negative) Urine Bilirubin (Negative) Ur Leukocyte Esterase (Negative) Urine RBC (0-5) /hpf Urine WBC (0-5) /hpf Hyaline Casts (0-2) /lpf Urine Mucus (None) /hpf C. difficile (EIA) Intrp Positive A (Negative) Assessment and Plan (1) C. difficile colitis Status: Acute Code(s): A04.72 - ENTEROCOLITIS D/T CLOSTRIDIUM DIFFICILE, NOT SPCF RECUR SNOMED Code(s): 464395159 (2) Sepsis Status: Acute Code(s): A41.9 - SEPSIS, UNSPECIFIED ORGANISM SNOMED Code(s): 05797657 Plan: 1patient presented hospital with sepsis in this patient with a fever elevated white count patient did have significant diarrhea with evidence of pancolitis likely related to severe C. difficile colitis clinically doubt UTI. 2patient with a penicillin allergy that will limit the number of antibiotic safe to use. 3discontinue Levaquin. 4we will start the patient on vancomycin 500 mg p.o. every 6 hours along with IV Flagyl in view of severe pancolitis associated with C. difficile colitis and the patient need to be monitored closely for any complications such as toxic megacolon and the patient benefit from surgical evaluation 5strict contact isolation. 6avoid antimotility agent. We will follow on clinical condition and cultures to further adjust medication if needed Thank you for this consultation we will follow the patient along with you Dictation was produced using [employer] dictation software. please excuse any grammatical, word or spelling errors. Time with Patient: Greater than 30
[2023-07-31] MEDS: METOPROLOL TARTRATE 50 MG TAB PO SCH ×2 (10:46→15:42)
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
--- NOTE | 2023-07-31 12:38 | P.PN ---
Subjective Progress Note Date: 07/31/23 Principal diagnosis: Sepsis, C. diff colitis * 57-year-old gentleman with past medical history significant for traumatic brain injury, history of CVA, TIA, congestive heart failure diastolic dysfunction, diabetes mellitus, hyperlipidemia, hypertension COPD presented to the emergency department with altered mentation * At the time of presentation patient was alert to person and hard to arouse. Workup initiated including CBC which showed white cell count of 20.8, platelet count of 278, venous blood gas obtained showed pH of 7.4, pCO2 of 32 * Serum chemistries showed sodium of 142 potassium 4.7 BUN 17 creatinine 1.3 to lactate of 2.9 upon admission * Urinalysis is obtained showed significant white blood cell count leukocyte esterase * Patient tested negative for influenza and Covid * Patient was given 1.5 L of fluid bolus followed by maintenance fluid. Serial lactate levels ordered * While in ER patient was noted to have an episode of paroxysmal SVT EKG obtained and IV Lopressor ordered caution with excessive fluid due to his concern for pulmonary vascular congestion * * 07/31: Patient remains critically ill however mentation has improved post hydration. Patient had stool C. diff chest which came back positive. he does have severe lactic acidosis and sepsis secondary to C. diff colitis. Consult obtained from infectious disease, critical care medicine, cardiology. He will need to be transferred to medical ICU for close monitoring noted to have significant tachycardia with heart rate ranging between 140s to 160. IV Lopressor ordered. Patient has poor IV access vascular team called to place a midline however vascular team unavailable. Called medical ICU team for central line placement however they were not able to immediately assessed. Requested ED team to come and place a central line the patient has an axis and can be resuscitated. Patient continues to remain critically ill total time spent coordination of care at least 60 minutes. Continue with aggressive fluid resuscitation, serial lactate levels REVIEW OF SYSTEMS: Complains of fatigue and malaise abdominal distention generalized pain HEENT: No recent visual problems or hearing problems. Denied any sore throat. CARDIOVASCULAR: No chest pain, orthopnea, PND, no palpitations, no syncope. PULMONARY: No shortness of breath, no cough, no hemoptysis. GASTROINTESTINAL: No diarrhea, no nausea, no vomiting, no abdominal pain. NEUROLOGICAL: No headaches, no weakness, no numbness. HEMATOLOGICAL: Denies any bleeding or petechiae. GENITOURINARY: Denies any burning micturition, frequency, or urgency. MUSCULOSKELETAL/RHEUMATOLOGICAL: Denies any joint pain, swelling, or any muscle pain. ENDOCRINE: Denies any polyuria or polydipsia. Objective - Vital Signs Vital signs: Vital Signs Temp 102.3 F H 07/31/23 06:23 Pulse 168 H 07/31/23 07:10 Resp 26 H 07/31/23 07:10 BP 129/75 07/31/23 07:10 Pulse Ox 99 07/31/23 07:10 FiO2 Intake & Output 07/30/23 07/31/23 07/31/23 18:59 06:59 18:59 Weight 176.901 kg - Exam PHYSICAL EXAMINATION: GENERAL: The patient is alert and oriented x 1, easily arousable mentation has improved HEENT: Pupils are round and equally reacting to light. EOMI. CARDIOVASCULAR: S1 and S2 present. No murmurs, rubs, or gallops. Tachycardia noted PULMONARY: Nasal cannula in place, decreased breath sounds bilaterally Sinus tachycardia noted ABDOMEN: Soft, nontender on palpation Chow cath in place MUSCULOSKELETAL: No joint swelling or deformity. NEUROLOGICAL: Neurological exam limited secondary to patient mentation - Labs CBC & Chem 7: 07/31/23 06:00 07/31/23 06:00 Labs: Abnormal Lab Results - Last 24 Hours (Table) 07/30/23 07/30/23 07/30/23 Range/Units 11:56 13:50 16:00 WBC (3.8-10.6) k/uL MCHC (31.0-37.0) g/dL RDW (11.5-15.5) % Plt Count (150-450) k/uL Neutrophils # (1.3-7.7) k/uL Lymphocytes # (1.0-4.8) k/uL ABG pCO2 (35-45) mmHg ABG HCO3 (21-25) mmol/L Chloride (98-107) mmol/L Carbon Dioxide (22-30) mmol/L BUN (9-20) mg/dL Creatinine 1.32 H (0.66-1.25) mg/dL Glucose 148 H (74-99) mg/dL POC Glucose (mg/dL) (70-110) mg/dL Plasma Lactic Acid Smith 4.6 H* (0.7-2.0) mmol/L Calcium (8.4-10.2) mg/dL AST (17-59) U/L ALT (4-49) U/L Total Protein (6.3-8.2) g/dL Albumin (3.5-5.0) g/dL C. difficile (EIA) Intrp Positive A (Negative) 07/30/23 07/30/23 07/30/23 Range/Units 20:31 21:36 23:11 WBC (3.8-10.6) k/uL MCHC (31.0-37.0) g/dL RDW (11.5-15.5) % Plt Count (150-450) k/uL Neutrophils # (1.3-7.7) k/uL Lymphocytes # (1.0-4.8) k/uL ABG pCO2 33 L (35-45) mmHg ABG HCO3 19 L (21-25) mmol/L Chloride (98-107) mmol/L Carbon Dioxide (22-30) mmol/L BUN (9-20) mg/dL Creatinine (0.66-1.25) mg/dL Glucose (74-99) mg/dL POC Glucose (mg/dL) 190 H (70-110) mg/dL Plasma Lactic Acid Smith 5.5 H* (0.7-2.0) mmol/L Calcium (8.4-10.2) mg/dL AST (17-59) U/L ALT (4-49) U/L Total Protein (6.3-8.2) g/dL Albumin (3.5-5.0) g/dL C. difficile (EIA) Intrp (Negative) 07/30/23 07/31/23 07/31/23 Range/Units 23:15 06:00 06:00 WBC 19.6 H (3.8-10.6) k/uL MCHC 30.1 L (31.0-37.0) g/dL RDW 16.4 H (11.5-15.5) % Plt Count 138 L D (150-450) k/uL Neutrophils # 17.9 H (1.3-7.7) k/uL Lymphocytes # 0.8 L (1.0-4.8) k/uL ABG pCO2 (35-45) mmHg ABG HCO3 (21-25) mmol/L Chloride 112 H (98-107) mmol/L Carbon Dioxide 14 L (22-30) mmol/L BUN 25 H (9-20) mg/dL Creatinine 1.65 H (0.66-1.25) mg/dL Glucose 135 H (74-99) mg/dL POC Glucose (mg/dL) (70-110) mg/dL Plasma Lactic Acid Smith 5.1 H* (0.7-2.0) mmol/L Calcium 7.4 L (8.4-10.2) mg/dL AST 166 H (17-59) U/L ALT 86 H (4-49) U/L Total Protein 5.8 L (6.3-8.2) g/dL Albumin 2.9 L (3.5-5.0) g/dL C. difficile (EIA) Intrp (Negative) 07/31/23 07/31/23 Range/Units 06:33 09:18 WBC (3.8-10.6) k/uL MCHC (31.0-37.0) g/dL RDW (11.5-15.5) % Plt Count (150-450) k/uL Neutrophils # (1.3-7.7) k/uL Lymphocytes # (1.0-4.8) k/uL ABG pCO2 (35-45) mmHg ABG HCO3 (21-25) mmol/L Chloride (98-107) mmol/L Carbon Dioxide (22-30) mmol/L BUN (9-20) mg/dL Creatinine (0.66-1.25) mg/dL Glucose (74-99) mg/dL POC Glucose (mg/dL) 147 H (70-110) mg/dL Plasma Lactic Acid Smith 4.9 H* (0.7-2.0) mmol/L Calcium (8.4-10.2) mg/dL AST (17-59) U/L ALT (4-49) U/L Total Protein (6.3-8.2) g/dL Albumin (3.5-5.0) g/dL C. difficile (EIA) Intrp (Negative) Microbiology - Last 24 Hours (Table) 07/30/23 10:30 Blood Culture Gram Stain - Preliminary Blood 07/30/23 10:45 Blood Culture Gram Stain - Preliminary Blood Assessment and Plan Assessment: Assessment and plan * Sepsis secondary C. diff colitis * Acute on chronic metabolic encephalopathy * Acute C. diff colitis * Supraventricular tachycardia * History of Traumatic brain injury with focal neurological deficit present on admission, history of resolved right-sided deficit * Diabetes mellitus type 2 * Morbid obesity * History of COPD * Hypertension * History of anxiety and depression * CT abdomen and pelvis obtained and reviewed shows extensive colitis, stool C. diff positive, continue isolation oral vancomycin and IV Flagyl * Infectious disease, cardiology, medical ICU consulted * Cardiology consulted secondary to paroxysmal tachycardia despite fluid bolus. When necessary IV Lopressor ordered, initiated home oral metoprolol * In regards to diabetes mellitus continue to hold metformin, continue correctional insulin. Accu-Cheks before meals at bedtime * In regards to history of urinary retention continue Flomax * In regards to acute metabolic encephalopathy, mentation has improved patient is alert and oriented to person and situation * Patient remains critically ill needing immediate attention contacted medical ICU ER team for expectation of care for transfer to medical ICU and vascular access requested central line placement * CODE STATUS is full code
[2023-07-31 13:49] LABS: Glucose,Whole Blood 128 mg/dL (70-110)
[2023-07-31 14:58] LABS: Glucose,Whole Blood 130 mg/dL (70-110)
--- NOTE | 2023-07-31 15:00 | ED ---
Medical Decision Making - Medical Decision Making Requested by Dr. Maguire to place central line. This was done right femoral without difficulty. At the end of the procedure patient started breathing heavily. When questioned about this patient said he was feeling fine. Within a couple minutes following this patient did stop breathing and arrested. ALFREDO HODGES was called. Dr. Maguire did arrive to run the code. Patient was intubated by saw cleaner - Lab Data Result diagrams: 07/31/23 06:00 07/31/23 06:00 Lab Results 07/30/23 07/30/23 07/30/23 Range/Units 10:28 10:30 10:48 WBC 20.8 H (3.8-10.6) k/uL RBC 5.19 (4.30-5.90) m/uL Hgb 13.0 (13.0-17.5) gm/dL Hct 42.0 (39.0-53.0) % MCV 81.0 (80.0-100.0) fL MCH 25.0 (25.0-35.0) pg MCHC 30.9 L (31.0-37.0) g/dL RDW 16.4 H (11.5-15.5) % Plt Count 278 (150-450) k/uL MPV 8.4 Neutrophils % 86 % Lymphocytes % 7 % Monocytes % 4 % Eosinophils % 0 % Basophils % 0 % Neutrophils # 17.9 H (1.3-7.7) k/uL Lymphocytes # 1.5 (1.0-4.8) k/uL Monocytes # 0.9 (0-1.0) k/uL Eosinophils # 0.1 (0-0.7) k/uL Basophils # 0.0 (0-0.2) k/uL Hypochromasia Moderate Anisocytosis Slight PT (9.0-12.0) sec INR (<1.2) APTT (22.0-30.0) sec VBG pH (7.31-7.41) VBG pCO2 (37-51) mmHg VBG HCO3 (24-28) mmol/L Sodium (137-145) mmol/L Potassium (3.5-5.1) mmol/L Chloride (98-107) mmol/L Carbon Dioxide (22-30) mmol/L Anion Gap mmol/L BUN (9-20) mg/dL Creatinine (0.66-1.25) mg/dL Est GFR (CKD-EPI)AfAm (>60 ml/min/1.73 sqM) Est GFR (CKD-EPI)NonAf (>60 ml/min/1.73 sqM) Glucose (74-99) mg/dL POC Glucose (mg/dL) (70-110) mg/dL POC Glu Service Department Manager ID Lactic Ac Sepsis Rflx Plasma Lactic Acid Smith 2.9 H* (0.7-2.0) mmol/L Calcium (8.4-10.2) mg/dL Magnesium (1.6-2.3) mg/dL Total Bilirubin (0.2-1.3) mg/dL AST (17-59) U/L ALT (4-49) U/L Alkaline Phosphatase (38-126) U/L Ammonia 27 (<30) umol/L Total Protein (6.3-8.2) g/dL Albumin (3.5-5.0) g/dL Urine Color Urine Appearance (Clear) Urine pH (5.0-8.0) Ur Specific Bartley (1.001-1.035) Urine Protein (Negative) Urine Glucose (UA) (Negative) Urine Ketones (Negative) Urine Blood (Negative) Urine Nitrite (Negative) Urine Bilirubin (Negative) Urine Urobilinogen (<2.0) mg/dL Ur Leukocyte Esterase (Negative) Urine RBC (0-5) /hpf Urine WBC (0-5) /hpf Ur Squamous Epith Cells (0-4) /hpf Hyaline Casts (0-2) /lpf Urine Mucus (None) /hpf Influenza Type A (PCR) Not Detected (Not Detectd) Influenza Type B (PCR) Not Detected (Not Detectd) RSV (PCR) Not Detected (Not Detectd) SARS-CoV-2 (PCR) Not Detected (Not Detectd) 07/30/23 07/30/23 07/30/23 Range/Units 10:48 10:56 11:51 WBC (3.8-10.6) k/uL RBC (4.30-5.90) m/uL Hgb (13.0-17.5) gm/dL Hct (39.0-53.0) % MCV (80.0-100.0) fL MCH (25.0-35.0) pg MCHC (31.0-37.0) g/dL RDW (11.5-15.5) % Plt Count (150-450) k/uL MPV Neutrophils % % Lymphocytes % % Monocytes % % Eosinophils % % Basophils % % Neutrophils # (1.3-7.7) k/uL Lymphocytes # (1.0-4.8) k/uL Monocytes # (0-1.0) k/uL Eosinophils # (0-0.7) k/uL Basophils # (0-0.2) k/uL Hypochromasia Anisocytosis PT (9.0-12.0) sec INR (<1.2) APTT (22.0-30.0) sec VBG pH 7.43 H (7.31-7.41) VBG pCO2 32 L (37-51) mmHg VBG HCO3 21 L (24-28) mmol/L Sodium (137-145) mmol/L Potassium (3.5-5.1) mmol/L Chloride (98-107) mmol/L Carbon Dioxide (22-30) mmol/L Anion Gap mmol/L BUN (9-20) mg/dL Creatinine (0.66-1.25) mg/dL Est GFR (CKD-EPI)AfAm (>60 ml/min/1.73 sqM) Est GFR (CKD-EPI)NonAf (>60 ml/min/1.73 sqM) Glucose (74-99) mg/dL POC Glucose (mg/dL) 146 H (70-110) mg/dL POC Glu Service Department Manager ID John Rondon Lactic Ac Sepsis Rflx Y Plasma Lactic Acid Smith (0.7-2.0) mmol/L Calcium (8.4-10.2) mg/dL Magnesium (1.6-2.3) mg/dL Total Bilirubin (0.2-1.3) mg/dL AST (17-59) U/L ALT (4-49) U/L Alkaline Phosphatase (38-126) U/L Ammonia (<30) umol/L Total Protein (6.3-8.2) g/dL Albumin (3.5-5.0) g/dL Urine Color Urine Appearance (Clear) Urine pH (5.0-8.0) Ur Specific Bartley (1.001-1.035) Urine Protein (Negative) Urine Glucose (UA) (Negative) Urine Ketones (Negative) Urine Blood (Negative) Urine Nitrite (Negative) Urine Bilirubin (Negative) Urine Urobilinogen (<2.0) mg/dL Ur Leukocyte Esterase (Negative) Urine RBC (0-5) /hpf Urine WBC (0-5) /hpf Ur Squamous Epith Cells (0-4) /hpf Hyaline Casts (0-2) /lpf Urine Mucus (None) /hpf Influenza Type A (PCR) (Not Detectd) Influenza Type B (PCR) (Not Detectd) RSV (PCR) (Not Detectd) SARS-CoV-2 (PCR) (Not Detectd) 07/30/23 07/30/23 07/30/23 Range/Units 11:56 11:56 11:56 WBC (3.8-10.6) k/uL RBC (4.30-5.90) m/uL Hgb (13.0-17.5) gm/dL Hct (39.0-53.0) % MCV (80.0-100.0) fL MCH (25.0-35.0) pg MCHC (31.0-37.0) g/dL RDW (11.5-15.5) % Plt Count (150-450) k/uL MPV Neutrophils % % Lymphocytes % % Monocytes % % Eosinophils % % Basophils % % Neutrophils # (1.3-7.7) k/uL Lymphocytes # (1.0-4.8) k/uL Monocytes # (0-1.0) k/uL Eosinophils # (0-0.7) k/uL Basophils # (0-0.2) k/uL Hypochromasia Anisocytosis PT 12.5 H (9.0-12.0) sec INR 1.2 H (<1.2) APTT 24.8 (22.0-30.0) sec VBG pH (7.31-7.41) VBG pCO2 (37-51) mmHg VBG HCO3 (24-28) mmol/L Sodium 142 (137-145) mmol/L Potassium 4.7 (3.5-5.1) mmol/L Chloride 107 (98-107) mmol/L Carbon Dioxide 23 (22-30) mmol/L Anion Gap 12 mmol/L BUN 17 (9-20) mg/dL Creatinine 1.32 H (0.66-1.25) mg/dL Est GFR (CKD-EPI)AfAm 69 (>60 ml/min/1.73 sqM) Est GFR (CKD-EPI)NonAf 60 (>60 ml/min/1.73 sqM) Glucose 148 H (74-99) mg/dL POC Glucose (mg/dL) (70-110) mg/dL POC Glu Service Department Manager ID Lactic Ac Sepsis Rflx Plasma Lactic Acid Smith (0.7-2.0) mmol/L Calcium 8.8 (8.4-10.2) mg/dL Magnesium 1.9 (1.6-2.3) mg/dL Total Bilirubin 0.7 (0.2-1.3) mg/dL AST 35 (17-59) U/L ALT 33 (4-49) U/L Alkaline Phosphatase 111 (38-126) U/L Ammonia (<30) umol/L Total Protein 6.9 (6.3-8.2) g/dL Albumin 3.6 (3.5-5.0) g/dL Urine Color Yellow Urine Appearance Cloudy (Clear) Urine pH 6.0 (5.0-8.0) Ur Specific Bartley 1.031 (1.001-1.035) Urine Protein 2+ H (Negative) Urine Glucose (UA) Trace H (Negative) Urine Ketones Negative (Negative) Urine Blood Large H (Negative) Urine Nitrite Negative (Negative) Urine Bilirubin 1+ H (Negative) Urine Urobilinogen 2.0 (<2.0) mg/dL Ur Leukocyte Esterase Moderate H (Negative) Urine RBC >182 H (0-5) /hpf Urine WBC 46 H (0-5) /hpf Ur Squamous Epith Cells 4 (0-4) /hpf Hyaline Casts 4 H (0-2) /lpf Urine Mucus Many H (None) /hpf Influenza Type A (PCR) (Not Detectd) Influenza Type B (PCR) (Not Detectd) RSV (PCR) (Not Detectd) SARS-CoV-2 (PCR) (Not Detectd) Disposition Clinical Impression: Sepsis, Fever Disposition: ADMITTED IP TO THIS HOSP Condition: Serious Is patient prescribed a controlled substance at d/c from ED?: No Procedures - Central Line Placement Right Femoral Consent Obtained: verbal consent, emergent situation Patient Placed on Monitor/Pulse Ox: Yes MD Prep: mask, gown, gloves Central Line Prep: Chlorhexidine scrub Local Anesthesia Used: Lidocaine 1% Ultrasound Used for Placement: No Central Line Lumen Inserted: triple Central Line Position: good blood return, all ports aspirated, flushed, capped, sutured in place with 3-0 nylon Dressing Applied: Tegaderm Patient Tolerated Procedure: well Complications: none Additional Comments: Patient did arrest during the very end of the procedure.
--- NOTE | 2023-07-31 15:18 | P.DS ---
Providers Date of admission: 07/30/23 13:26 Expected date of discharge: 07/31/23 Attending physician: Gustavo sEpinoza Consults: 07/30/23 13:24 Consult Physician Routine Consulting Provider: Kiana Salazar Consult Reason/Comments: Sepsis Do you want consulting provider notified?: Yes 07/30/23 15:28 Consult Physician Routine Consulting Provider: George Don Consult Reason/Comments: Paroxysmal SVT Do you want consulting provider notified?: Yes 07/30/23 23:03 Consult Physician Routine Consulting Provider: Damien Kincaid Consult Reason/Comments: Tachypnea with increased lactic acid-requested per Anita Do you want consulting provider notified?: Yes, Notify in am Primary care physician: [facility] Hospital Course: * 57-year-old gentleman with past medical history significant for traumatic brain injury, history of CVA, TIA, congestive heart failure diastolic dysfunction, diabetes mellitus, hyperlipidemia, hypertension COPD presented to the emergency department with altered mentation * At the time of presentation patient was alert to person and hard to arouse. Workup initiated including CBC which showed white cell count of 20.8, platelet count of 278, venous blood gas obtained showed pH of 7.4, pCO2 of 32 * Serum chemistries showed sodium of 142 potassium 4.7 BUN 17 creatinine 1.3 to lactate of 2.9 upon admission * Urinalysis is obtained showed significant white blood cell count leukocyte esterase * Patient tested negative for influenza and Covid * Patient was given 1.5 L of fluid bolus followed by maintenance fluid. Serial lactate levels ordered * While in ER patient was noted to have an episode of paroxysmal SVT EKG obtained and IV Lopressor ordered caution with excessive fluid due to his concern for pulmonary vascular congestion * * 07/31: Patient remains critically ill however mentation has improved post hydration. Patient had stool C. diff chest which came back positive. he does have severe lactic acidosis and sepsis secondary to C. diff colitis. Consult obtained from infectious disease, critical care medicine, cardiology. He will need to be transferred to medical ICU for close monitoring noted to have significant tachycardia with heart rate ranging between 140s to 160. IV Lopressor ordered. Patient has poor IV access vascular team called to place a midline however vascular team unavailable. Called medical ICU team for central line placement however they were not able to immediately assessed. Requested ED team to come and place a central line the patient has an axis and can be resuscitated. Patient continues to remain critically ill total time spent coordination of care at least 60 minutes. Continue with aggressive fluid resuscitation, serial lactate levels * ER team was kind enough to put a central line in, patient was given IV Lopressor to resuscitate as well as for tachycardia. IV fluids were running for fluid resuscitation as well however patient continued to have intractable tachycardia sinus A Cardia was noted. Patient was appropriately resuscitated with IV fluids. Patient had nonsustained V. tach around 2:41 PM and ultimately had asystole and CODE BLUE was called * CODE BLUE : Please see code sheet for details * Initial rhythm was asystole with PEA noted during code as well * Patient was given about 8 rounds of epinephrine, 3amp of sodium bicarbonate,Magnesium sulfate 2 g IV * IV access from right femoral central line. Patient was intubated * Pulse was never regained code continued for several minutes around 3:06 PM code was called off * Code was run for about 25 minutes. * Previous medical record showed DO NOT RESUSCITATE status however after calling patient legal guardian to confirm they wanted patient to be resuscitated and was made full code. However after prolonged resuscitation patient legal guardian was called and notified about the outcome. Patient mother Dixie Bailon was called as well however unable to contact. His legal guardian called and they will call patient mother for update Assessment: * Sepsis secondary C. diff colitis * Acute on chronic metabolic encephalopathy * Acute C. diff colitis * Supraventricular tachycardia * Status post cardiac arrest with PEA * History of Traumatic brain injury with focal neurological deficit present on admission, history of resolved right-sided deficit * Diabetes mellitus type 2 * Morbid obesity * History of COPD * Hypertension * History of anxiety and depression Plan - Discharge Summary New Discharge Prescriptions: Discontinued Budesonide/Formoterol Fumarate [Symbicort 160-4.5 Mcg Inhaler] 2 puff INHALATION RT-BID Cholecalciferol (Vitamin D3) [Vitamin D3 (125 MCG = 5,000 IU)] 125 mcg PO DAILY Meloxicam [Mobic] 15 mg PO DAILY Latanoprost [Latanoprost 0.005%] 1 drop BOTH EYES HS Cyclobenzaprine [Flexeril] 10 mg PO HS Atorvastatin [Lipitor] 10 mg PO HS DULoxetine HCL [Drizalma Sprinkle] 30 mg PO BID Cyanocobalamin (Vitamin B-12) [Vitamin B-12] 1,000 mcg PO DAILY metFORMIN HCL [Glucophage] 500 mg PO BID Ferrous Sulfate [Feosol] 325 mg PO DAILY Metoprolol Tartrate [Lopressor] 50 mg PO TID@0600,1400,2200 lamoTRIgine [LaMICtal Xr] 250 mg PO DAILY Tamsulosin [Flomax] 0.4 mg PO DAILY Pregabalin [Lyrica] 100 mg PO BID #6 cap Acetaminophen Tab [Tylenol] 650 mg PO Q6HR PRN PRN Reason: general discomfort Melatonin 15 mg PO HS oxyCODONE-APAP 7.5-325MG [Percocet 7.5-325 mg] 1 tab PO Q6H PRN PRN Reason: Pain Buprenorphine [Butrans 10 MCG/HOUR] 1 patch TRANSDERM MO@2100 Loperamide HCl [Imodium A-D] 2 - 4 mg PO QID PRN PRN Reason: Diarrhea Follow up Appointment(s)/Referral(s): None,Stated [REFERRING] - 1-2 days Discharge Disposition: - Preliminary Cause of Preliminary Cause of : Sepsis, C. diff colitis, SVT
--- NOTE | 2023-07-31 17:37 | CA ---
Transthoracic Echo Report Name: Brown Mcdonald Age: 57 Gender: M : 1965 Exam Date: 07/31/2023 12:24 Exam Location: [facility] Ht (in): 77 Wt (lb): 390 Ordering Physician: Kailyn Ho Attending/Referring Phys: Linen Clerk Wendy Wolfe RDCS Procedure CPT: Indications: tachycardia Cardiac Hx: RV 3.4 cm, Technical Quality: Technically difficult study Contrast 1: Lumason Total Dose (mL): 3 Contrast 2: Total Dose (mL): MEASUREMENTS (Male / Female) Normal Values FINDINGS Left Ventricle Left ventricular ejection fraction is estimated at 55 %. Left ventricular cavity size normal. Mild concentric left ventricular hypertrophy. Right Ventricle Mild right ventricular dilatation. Right ventricular systolic pressure estimated at 33 mm hg. Right Atrium Right atrium not well visualized. Left Atrium Normal left atrial size. Mitral Valve Mitral valve not well visualized. Aortic Valve Aortic valve not well visualized. Tricuspid Valve Mild tricuspid regurgitation. Pulmonic Valve Pulmonic valve not well visualized. Pericardium No pericardial effusion. Aorta Normal size aortic root and proximal ascending aorta. CONCLUSIONS Left ventricular ejection fraction 55% Tachycardia noted throughout exam RVSP 33 Mild tricuspid regurgitation Technically difficult study Previewed by: Dr. Fady Mccallum DO (Electronically Signed) Final Date: 31 July 2023 17:36
[2023-07-31 18:38] VITALS: BP 0/0; PULSE 0; RESP 0; TEMP 0
[2023-08-02] MEDS ORDERED: BUTRANS TRANSDERM SCH (21:00)
== END 2023-07-31 15:45 | disposition expired | DRG 871 ==
LOC: EC 10:18 → 3SCARD 13:26 → 2SICU 07-31 12:44
PROVIDERS: ADMIT Hospitalist; ATTEND Hospitalist
PROC: 0BH17EZ Insertion of Endotracheal Airway into Trachea, Via Natural or Artificial Opening (ICD-10-PCS; principal; 2023-07-31)
PROC: 06HY33Z Insertion of Infusion Device into Lower Vein, Percutaneous Approach (ICD-10-PCS; principal; 2023-07-31)
PROC: 5A12012 Performance of Cardiac Output, Single, Manual (ICD-10-PCS; principal; 2023-07-31)
DX: A41.4 Sepsis due to anaerobes (principal); G93.41 Metabolic encephalopathy; A04.72 Enterocolitis due to Clostridium difficile, not specified as recurrent; N17.9 Acute kidney failure, unspecified; E87.20 Acidosis, unspecified; I47.20 Ventricular tachycardia, unspecified; I47.1 Supraventricular tachycardia; G81.91 Hemiplegia, unspecified affecting right dominant side; N39.0 Urinary tract infection, site not specified; I50.32 Chronic diastolic (congestive) heart failure; Z68.42 Body mass index [BMI] 45.0-49.9, adult; I46.9 Cardiac arrest, cause unspecified; I11.0 Hypertensive heart disease with heart failure; S06.2XAS Diffuse traumatic brain injury with loss of consciousness status unknown, sequela; E66.01 Morbid (severe) obesity due to excess calories; J44.9 Chronic obstructive pulmonary disease, unspecified; E11.9 Type 2 diabetes mellitus without complications; Z20.822 Contact with and (suspected) exposure to COVID-19; E78.5 Hyperlipidemia, unspecified; E86.0 Dehydration; I45.10 Unspecified right bundle-branch block; K21.9 Gastro-esophageal reflux disease without esophagitis; E07.9 Disorder of thyroid, unspecified; K76.9 Liver disease, unspecified; R33.9 Retention of urine, unspecified; F32.A Depression, unspecified; F41.9 Anxiety disorder, unspecified; K76.0 Fatty (change of) liver, not elsewhere classified; Z79.51 Long term (current) use of inhaled steroids; Z79.1 Long term (current) use of non-steroidal anti-inflammatories (NSAID); Z79.84 Long term (current) use of oral hypoglycemic drugs; Z79.899 Other long term (current) drug therapy; Z86.73 Personal history of transient ischemic attack (TIA), and cerebral infarction without residual deficits; Z98.1 Arthrodesis status; W34.00XS Accidental discharge from unspecified firearms or gun, sequela; Z88.0 Allergy status to penicillin
CPT/HCPCS: 36415; 36600; 71045; 74176; 80053; 81001; 82140; 82803; 82805; 83036; 83605; 83735; 83880; 85025; 85610; 85730; 87040; 87045; 87046; 87086; 87324; 87636; 92950; 93005; 93306; 94640; 96361; 96365; 96366; 96367; 96372; 96375; 96376